=== PATIENT | female | born 1975 | race Caucasian/White ===

== ENCOUNTER 2022-05-09 13:32 | Outpatient (CLI) | payer BC, SELFPAY ==
--- OUTSIDE RECORDS SUMMARY | 2022-05-09 13:36 | XMS_ITS ---
:1975 Author Care Team Providers Name Role Phone ROBER DOYLE MD (VIRTUAL VISITS AVAILABLE) Primary Car e Provider [phone] Allergies Code Code System Name Reaction Severity Status Onset NKDA ? Medications Name Status Start Date Stop Date ? ? albuterol sulfate HFA 90 mcg/actuation aerosol inhaler Active ? Not available Inhale 2 puffs every 4 hours by inhalation route. Bactrim DS 800 mg-160 mg tablet Active ? Not available Take 1 tablet every 12 hours by oral route for 7 days. benzonatate 200 mg capsule Active ? Not a vailable Take 1 capsule 3 times a day by oral route for 5 days. cyclobenzaprine 10 mg tablet Active ? Not available Flucelvax Quad 0983-6945 (PF) 60 mcg (15 mcg x 4)/0.5 mL IM syri nge Active ? Not available TO BE ADMINISTERED BY PHARMACIST FOR IMMUNIZATION Macrobid 100 mg capsule Active ? Not avai lable Take 1 capsule every 12 hours by oral route for 5 days. methylprednisolone 4 mg tablets in a dose pack Active ? Not available Pyridium 200 mg tablet Active ? Not avail able Take 1 tablet 3 times a day by oral route as needed for 2 days. triamcinolone acetonide 0.1 % topical cream Completed ? 10/06/2017 Problems None recorded. Procedures Date Name Performed by ? 09/01/2017 XR, Ankle, 3 or More View Information no t available 09/01/2017 XR, Knee, 3 View Information not avai lable Results Lab Results None recorded. Past Encounters 11/28/2021 Urinary Tract Infectious Disease June Nevarez [facility]: [address] [place] [address], Ph. [phone] 10/11/2021 Covid-19; Acute Urinary Tract Infection June Nevarez [facility]: [address] [place] [address], Ph. [phone] Social History None recorded. Vaccine List Vaccine Type COVID-19, mRNA, LNP-S, PF, 30 mcg/0.3 mL dose (A vida é feita de [place]) 09/28/2020?0.3 mL 10/19/2020?0.3 mL influenza, injectable, quadrivalent 04/09/2017 Tdap 09/01/2017?0.5 mL Plan of Care Patient Instructions Thank you for using [facility]. I am sorry you are not feeling well. Your history and physical exam are consi stent with a urinary tract infection. Studies have indicated that testing for a UTI when symptoms are present is not necessary and the standard of care is to gala t with antibiotics if patients present w ith symptoms such as yours. I have prescribed antibiotics, take as d irected, and complete the entire course. You should notice a rapid improvement in symptoms within 48 hours of starting treatment. I have also prescribed phenazopyridine. Take every six hours to relieve the pain associated with urination. This will turn your urine a bright orange color. Follow up in person with your doctor or at an urgent care if you develop abdominal pain, nausea, fever, or any other symptoms of concern. Thank you for using [facility]. I am sorry you are not feeling well. Your history and exam are consistent wit h a COVID-19 infection. Treatment is focused on controlling the symptoms. Start Amberly-D 24-hour dosing once daniel y for sinus symptom control. This will reduce post nasal drip and improve your sore throat and cough. Start prescription benzonatate 200mg thr ee time daily as needed for additional cough control. Take two extra strength Tylenol every 6- 8 hours for fever and pain control. You can also supplement the Tylenol with ibuprofen 600mg (three over the counter 200mg capsules). These can be alternated in a rotating fashion every 4 hours. This is a safe dosing pattern. Rest, drink plenty of fluids, and treat your symptoms as they arise. You can expect the worse symptoms between days 7-9, with resolution by day 14. Please quarantine yourself from other individuals for 10-14 days from the onset of symptoms. I f, at day 10, you have not had any fever or chills for 24 consecutive hours without having to use Tylenol or Ibuprofen AND your symptoms are mild and improving, y ou may break quarantine and resume socia l distancing. If your fever or symptoms have not improved/resolved, then you should quarantine for the full 14 days. Should symptoms worsen, you develop wors ening shortness of breath or other symptoms of concern, and you are unable to continue to care for yourself, you should present to an urgent care or emergency department for in person evaluation. Reminders Provider Appointments None recorded. ? ? Lab None recorded. ? ? Referral None recorded. ? ? Procedures None recorded. ? ? Surgeries None recorded. ? ? Imaging None recorded. ? ? Vitals 10/06/2017 09:00AM Established Patient Weight 09/01/2017 08:40AM New Patient Weight Blood Pressure 142/88 mm[Hg]
--- OUTSIDE RECORDS SUMMARY | 2022-05-09 13:36 | XMS_ITS | Clinical Summary ---
:1975 Author Organization [facility] [facility] [place] [address] Care Team Providers Name Role Phone Laina Deluca DO Primary Care Provider Allergies No known active allergies Medications Medication Sig Dispensed Refills Start Date End Date Status albuterol HFA every 4 hours. 0 A ctive (PRO-AIR; VENTOLIN; PROVENTIL) 90 mcg/actuation inhaler omeprazole Take 1 Capsule 30 Capsule 0 04/29/2022 Ac tive (PRILOSEC) 40 mg (40 mg) by Delayed-Release mouth once capsuleIndicatio daily before a ns: Epigastric meal. pain nystatin powder Apply 1 Strip 60 g 0 04/29/2022 Active (MYCOSTATIN) topically to powderIndication affected s: Intertrigo area(s) three times daily. omeprazole Take 1 Capsule 30 Capsule 0 04/01/2022 Di scontinued (PRILOSEC) 40 mg (40 mg) by 2 (R eorder Delayed-Release mouth once (E- cancel not capsuleIndicatio daily before a sent)) ns: Epigastric meal. pain fluconazole Take 1 Tablet 1 Tablet 1 05/01/2022 Exp ired (DIFLUCAN) 150 (150 mg) by 2 mg mouth one time tabletIndication for 1 dose. s: Yeast vaginitis Active Problems Problem Noted Date Chronic pain of left knee 04/29/2022 Morbid exogenous obesity 04/29/2022 Encounters Date Type Specialty Care Team Description 05/09/2022 Orders Only Lab, [facility] 05/09/2022 Ancillary Procedure Arrived 05/09/2022 Travel 05/06/2022 Telephone Laina Deluca, Results DO 05/01/2022 Telephone Andrew Pham MD 04/29/2022 Office Visit Laina Deluca, Establish Care; DO Immunization/In jection 04/29/2022 Travel 04/01/2022 Office Visit Laina Deluca, Abdominal Pain (abdominal DO pain for a will h) 04/01/2022 Travel from Last 3 Months Immunizations Name Administration Dates Next Due COVID-19 vaccine (Moderna Booster 50mcg/0.25mL) PF, 01/03/20 22 MDV COVID-19 vaccine (Pfizer-BioNTech 30mcg/0.3mL) 12YO+ 022 BIVALENT BOOSTER PF, MDV COVID-19 vaccine (Pfizer-BioNTech 30mcg/0.3mL) PF, 1, 09/28/2020 MDV Influenza, IIV4 04/29/2022 Tdap 09/01/2017 Family History Medical History Relation Name Comments Anxiety disorder Mother Coronary artery disease Mother Hypertension Mother Scleroderma Mother Relation Name Status Comments Mother Social History Tobacco Use Types Packs/Day Years Used Date Never Smoker Smokeless Tobacco: Never Used Tobacco Cessation: Counseling Given: Yes Alcohol Use Standard Drinks/Week Comments Yes 0 (1 standard drink = 0.6 oz pure alcoho l) 1 x a month Alcohol Habits Answer Date Recorded How often do you have a drink containing alcohol? Not asked How many drinks containing alcohol do you have on a typical Not asked day when you are drinking? How often do you have six or more drinks on one occasion? 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 Obstetrics History Last Filed Vital Signs Vital Sign Reading Time Taken Comments Blood Pressure 158/104 04/29/2022 2:20 PM CDT Pulse 107 04/29/2022 2:20 PM CDT Temperature - - Respiratory Rate - - Oxygen Saturation 97% 04/29/2022 2:20 PM CDT Inhaled Oxygen Concentration - - Weight 166.5 kg (367 lb) 04/29/2022 2:20 PM CDT Height - - Body Mass Index - - Plan of Treatment Upcoming Encounters Date Type Specialty Care Team Description 05/23/2022 Office Visit Laina Deluca , DO [address] [facility] [place] [phone] (Wo rk) Health Maintenance Due Date Last Done Comments Depression screening for age 12+ 1985 BMI (ht and wt on same day) for 1991 age 18+ Hepatitis C screening for age 1105/05/1991 18-79 Colonoscopy through age 75 2018 Lipids for age 45-75 2018 Mammogram for age 45-75 2018 Pap test for age 21-65 04/29/2025 04/29/2022 Tetanus booster 09/02/2027 09/01/2017 Tdap Completed 09/01/2017 COVID-19 vaccine series Completed 04/29/2022, 01/02/2022, 10/19/2020, Additional history exists Influenza for age 9-49 Completed 04/29/2022 Procedures Procedure Name Priority Date/Time Associated Diagnosis Comme nts CT ABDOMEN PELVIS W Routine 05/09/2022 8:19 AM History of pelv ic Results for this [employer]IMAL [employer]Y TE[employer]ER mass procedure are i n the results section. TREPONEMA PALLIDUM Routine 04/29/2022 4:12 PM Screening Res ults for this CDT examination for STD procedur e are in (sexually the results transmitted disease) section . ANTI HIV 1/2 Routine 04/29/2022 4:12 PM Screening Results f or this CDT examination for STD procedur e are in (sexually the results transmitted disease) section . FERRITIN Routine 04/29/2022 4:12 PM Dizziness Results f or this CDT procedure are i n the results section. BASIC METABOLIC Routine 04/29/2022 4:12 PM Dizziness Result s for this PANEL CDT procedure are i n the results section. CBC W PLT NO DIFF Routine 04/29/2022 4:12 PM Dizziness Resu lts for this CDT procedure are i n the results section. HPV THIN PREP Routine 04/29/2022 3:17 PM Pap smear for Results for this CDT cervical cancer procedure ar e in screening the results section. TRICHOMONAS, Routine 04/29/2022 3:17 PM Vaginal discharge Resu lts for this TAVON, AND CDT procedure are i n BACTERIAL VAGINOSIS the resu lts BY KORY section. GC CHLAMYDIA TRACH Routine 04/29/2022 3:17 PM Screening Res ults for this PROBE CDT examination for STD procedur e are in (sexually the results transmitted disease) section . 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 ??You may view this report before your referring provider. ??If you have questions, please contact your health care provider. INDICATION: Reported history of a left trever pelvic t umor diagnosed in 2014 supposedly benign. No follow-up. TECHNIQUE: Contrast-enhanced CT of the abdomen and pelvis. 100 cc nonionic Omnipaque 350 administer ed. COMPARISON: Correlation is made with an outside pelv ic ultrasound report March 27, 2015 from [facility] in [place], [place]. FINDINGS: Multi lobulated enlarged uterus likely d ue to numerous coalescing fibroids or diffuse myomatous change. It is difficult to appreciate any discrete measurable fibroids. The entire uterus appears to be in volved. For measurement purposes, image 153 series 2, the uterus measures approximately 9.4 x 11.9 cm in AP and transverse dimension and extends for a cephalocaudal length of approximately 10.7 cm. Within the right adnexa there is a cysti c lesion likely arising from the right ovary measuring 3.8 x 3.3 cm. There are 2 additional apparently cystic masses potentially arising from the left ovary displaced by the large uterus. These cystic lesions are identified along the anterior and right margin of the uter us, see for example image 149 series 2. If this is the left ovary then it would be in an ectopic location. The larger cystic structure image 151 series 2 measures 4.7 x 6.2 cm. A pelvic MRI is recommended for further characterization. Hepatic fatty infiltration. The liver is otherwise negative. The spleen, accessory splenule, pancreas, gallbladder, adrenal glands, and right kidney are normal. Two cysts arise from the left kidney one anterosuperiorly measuring 6.0 x 6.8 cm and the other inferiorly measuring 3.7 x 4.2 cm. No hydronephrosis. No renal stone. Normal caliber abdominal aorta and iliac arteries. Normal inferior vena cava. No ascites. No abdominopelvic or inguina l lymphadenopathy. Fat containing umbilical hernia with the orifice of the hernia image 149 series 2 measuring 3.7 cm across. Scattered hypertrophic spurring lower th oracic and lumbar spine. Degenerative disc disease of lumbar spine best appreciated at L3 and L4. Clear included lung bases. IMPRESSION : 1. Enlarged indistinct uterus likely rel ated to multiple fibroids or diffuse fibroid involvement. Probable/possible simple cyst right ovary. 2. Two adjacent cystic structures along the anterior right margin of the uterus could reflect an ectopic location of the left ovary given the fact that no left ovary is identified in the left hemipelvis itself. MRI is recommended further eval uation of the uterus and ovaries. 3. Hepatic fatty infiltration. Left jaret l cysts. Fat containing umbilical hernia. Clear lungs. Please note that all CT scans at this [facility] use dose modulation, iterative reconstruction, and/or weight-based dosing when appropriate to reduce radiation dose to as low as reasonably achievable. Dictated by Rodrigue Fajardo MD @ May 09 ??1:26PM (Electronically Signed) ?? Procedure Note Rodrigue Fajardo MD - 05/09/2022Formatti ng of this note might be different from the original. For Patients: As a result of the ntury Cures Act, medical imaging exams and procedure reports are released immediately into your electronic medical record. You may view this report before your referring provider. If you have questions, please contact [facility] care provider. INDICATION: Reported history of a left trever pelvic t umor diagnosed in 2014 supposedly benign. No follow-up. TECHNIQUE: Contrast-enhanced CT of the abdomen and pelvis. 100 cc nonionic Omnipaque 350 administer ed. COMPARISON: Correlation is made with an outside pelv ic ultrasound report March 27, 2015 from [facility] in [place], [place]. FINDINGS: Multi lobulated enlarged uterus likely d ue to numerous coalescing fibroids or diffuse myomatous change. It is difficult to appreciate any discrete measurable fibroids. The entire uterus appears to be involved. For measurement purposes, image 153 series 2 , the uterus measures approximately 9.4 x 11.9 cm in AP and transverse dimension and extends for a cephalocaudal length of approximately 10.7 cm. Within the right adnexa there is a cysti c lesion likely arising from the right ovary measuring 3.8 x 3.3 cm. There are 2 additional apparently cystic masses potentially arising from the left ovary displaced by the large uterus. These cystic lesions are identified along the anterior and right margin of the uterus, see for example image 149 series 2. If this is t he left ovary then it would be in an ectopic location. The larger cystic structure image 151 series 2 measures 4.7 x 6.2 cm. A pelvic MRI is recommended for further characterization. Hepatic fatty infiltration. The liver is otherwise negative. The spleen, accessory splenule, pancreas, gallbladder, adrenal glands, and right kidney are normal. Two cysts arise from the left kidney one anterosuperiorly measuring 6.0 x 6.8 cm and the other inferiorly measuring 3.7 x 4.2 cm. No hydronephrosis. No renal stone. Normal caliber abdominal aorta and iliac arteries. Normal inferior vena cava. No ascites. No abdominopelvic or inguinal lymphadenopat hy. Fat containing umbilical hernia with the orifice of the hernia image 149 series 2 measuring 3.7 cm across. Scattered hypertrophic spurring lower th oracic and lumbar spine. Degenerative disc disease of lumbar spine best appreciated at L3 and L4. Clear included lung bases. IMPRESSION : 1. Enlarged indistinct uterus likely rel ated to multiple fibroids or diffuse fibroid involvement. Probable/possible simple cyst right ovary. 2. Two adjacent cystic structures along the anterior right margin of the uterus could reflect an ectopic location of the left ovary given the fact that no left ovary is identified in the left hemipelvis itself. MRI is recommended further evaluation of the ut erus and ovaries. 3. Hepatic fatty infiltration. Left jaret l cysts. Fat containing umbilical hernia. Clear lungs. Please note that all CT scans at this [facility] use dose modulation, iterative reconstruction, and/or weight-based dosing when appropriate to reduce radiation dose to as low as reasonably achievable. Dictated by Rodrigue Fajardo MD @ May 09 1:26PM (Electronically Signed) Laina Marte Yosi S[facility] CT TREPONEMA PALLIDUM (04/29/2022 4:12 PM CDT) Analysis Performed At [facility] logist Time Signature TREPONEMA Negative Negative 05/01/2022 [facility] PALLIDUM 9:17 AM CDT LABORATORY-[facility] TRAL LABORATORY Specimen Anatomical Collection Method / Collection Time Recei nisreen Time (Source) Location / Volume Laterality Blood BLOOD SPECIMEN / Venipuncture / 04/29/2022 4:12 2021 4:13 Unknown Unknown PM CDT PM CDT Laina Troyalon DO SEND OUTS Performing Organization Address City/State/ZIP Code Phon e Number [email or web address] [address] [place] [address] LABORATORY-CENTRAL 2000 LABORATORY (ABNORMAL) CBC W PLT NO DIFF (04/29/2022 4:12 PM CDT) [facility] gist Method Time Signature WHITE BLOOD 11.9 (H) 4.5 - 11.0 04/29/2022 [facility] [employer] [facility] COUNT thou/cu mm 4:20 PM CDT [facility] RED BLOOD COUNT 4.74 4.00 - 04/29/2022 [place] [facility] 5.20 4:20 PM CDT PAW PAW mil/cu mm CLINIC HEMOGLOBIN 13.6 12.0 - 04/29/2022 [place] [facility] 16.0 g/dL 4:20 PM CDT [facility] HEMATOCRIT 40.6 33.0 - 04/29/2022 [place] [facility] 51.0 % 4:20 PM CDT [facility] MCV 86 80 - 100 04/29/2022 [facility] [employer] [facility] fL 4:20 PM CDT [facility] MCH 28.7 26.0 - 04/29/2022 [place] [facility] [employer] [facility] 34.0 pg 4:20 PM CDT [facility] MCHC 33.5 32.0 - 04/29/2022 [place] [facility] [employer] [facility] 36.0 g/dL 4:20 PM CDT [facility] RDW 13.1 11.5 - 04/29/2022 [email or web address] 15.5 % 4:20 PM CDT [facility] PLATELET COUNT 385 140 - 440 04/29/2022 [facility] thou/cu mm 4:20 PM CDT [facility] MPV 9.7 6.5 - 11.0 04/29/2022 [facility] [employer] [facility] [employer] [facility] fL 4:20 PM CDT [facility] Specimen Anatomical Collection Method / Collection Time Recei nisreen Time (Source) Location / Volume Laterality Blood BLOOD SPECIMEN / Venipuncture / 04/29/2022 4:12 2021 4:13 Unknown Unknown PM CDT PM CDT Laina Deluca DO HEMATOLOGY Performing Organization Address City/[facility]/ZIP Code Phon e Number [facility] [address] [place] [address] ANTI HIV 1/2 (04/29/2022 4:12 PM CDT) Patholo gist Method Time Signature HIV-1/HIV-2 Non-Reacti Non-Reacti 04/30/2022 [facility] [employer] [facility] ANTIBODY ve ve 6:25 PM CDT LABORATORY[facility] TRAL LABORATORY Comment: HIV-1 p24 and HIV-1/HIV-2 Ab no t detected. Specimen Anatomical Collection Method / Collection Time Recei nisreen Time (Source) Location / Volume Laterality Blood BLOOD SPECIMEN / Venipuncture / 04/29/2022 4:12 2021 4:13 Unknown Unknown PM CDT PM CDT Laina Deluca DO SEND OUTS Performing Organization Address [facility] Phon e Number [facility] [address] [place] [address] LABORATORY-CENTRAL 2000 LABORATORY FERRITIN (04/29/2022 4:12 PM CDT) P athologist Signature FERRITIN 65.3 15.0 - 04/30/2022 [email or web address] 205.0 ng/mL 6:25 PM CDT LABORATORY-CENTR AL LABORATORY Specimen Anatomical Collection Method / Collection Time Recei nisreen Time (Source) Location / Volume Laterality Blood BLOOD SPECIMEN / Venipuncture / 04/29/2022 4:12 2021 4:13 Unknown Unknown PM CDT PM CDT Laina Deluca DO CHEMISTRY Performing Organization Address City/[facility]/ZIP Code Phon e Number [facility] [address] [place] [address] LABORATORY-CENTRAL 2000 LABORATORY (ABNORMAL) BASIC METABOLIC PANEL (04/29/2022 4:12 PM CDT) [facility] Time Signature SODIUM 136 135 - 145 04/30/2022 [facility] mmol/L 6:01 PM CDT LABORATORY-[facility] TRAL LABORATORY POTASSIUM 4.4 3.5 - 5.0 04/30/2022 [facility] mmol/L 6:01 PM CDT [facility]AT[facility] TRAL LABORATORY CHLORIDE 100 98 - 110 04/30/2022 [facility] mmol/L 6:01 PM CDT LAB[facility]AT[facility] TRAL LABORAT[facility] CO2,TOTAL 25 21 - 31 04/30/2022 [facility] mmol/L 6:01 PM CDT [facility]AT[facility] TRAL LABORATORY ANION GAP 11 5 - 18 04/30/2022 [facility] 6:01 PM CDT [facility]AT[facility] TRAL LABORATORY GLUCOSE 322 (H) 65 - 100 04/30/2022 [facility] mg/dL 6:01 PM CDT [facility] TRAL LABORATORY CALCIUM 9.1 8.5 - 10.5 04/30/2022 [facility] mg/dL 6:01 PM CDT [facility] BUN 14 8 - 25 04/30/2022 [facility] mg/dL 6:01 PM CDT [facility] LAB[facility] CREATININE 0.81 0.57 - 04/30/2022 [facility] [employer] [facility] 1.11 mg/dL 6:01 PM CDT [facility]AT[facility] TRAL LABORATORY BUN/CREAT RATIO 17 10 - 20 04/30/2022 [facility] 6:01 PM CDT [facility] LABORATORY eGFR 90 (L) >90 04/30/2022 [facility] mL/min/1.7 6:01 PM CDT LABORATORY-[facility] 3m2 TRAL LABORATORY Comment: As of 2021, eGFR is calcu lated by the CKD-EPI creatinine equation without race adjustment. eGFR can be inf luenced by muscle mass, exercise, and diet. The reported eGFR is an estimation only and is only applicable if the renal function is stable. Specimen Anatomical Collection Method / Collection Time Recei nisreen Time (Source) Location / Volume Laterality Blood BLOOD SPECIMEN / Venipuncture / 04/29/2022 4:12 2021 4:13 Unknown Unknown PM CDT PM CDT [employer]aina[employer] DO CHEMISTRY Performing Organization Address City/State/ZIP Code Phon e Number [facility] [address] [place] [address] LABORATORY-CENTRAL 1999 LABORATORY (ABNORMAL) TRICHOMONAS, TAVON, AND BACTERIAL VAGINOSIS BY [facility] (04/29/2022 3:17 PM CDT) [facility] Method Time Signature TAVON SPECIES Positive (A) Negative 04/30/2022 [facility] 4[facility] PM CDT LAB[facility]-CE NTRAL LABORATORY TAVON Positive (A) Negative 04/30/2022 [facility] 4:39 PM CDT LABORATORY-CE NTRAL LABORATORY TRICHOMONAS VVA Negative Negative 04/30/2022 [facility] 4:39 PM CDT LABORATORY-CE NTRNJ LABORATORY BACTERIAL Negative Negative 04/30/2022 [facility] VAGINOSIS 4:39 PM CDT LABORATORY-CE NTRAL LABORATORY Specimen Anatomical Collection Method Collection Time Receive d Time (Source) Location / / Volume Laterality Other VAGINAL SWAB / Non-Blood / 04/29/2022 3:17 PM 022 3:41 Unknown Unknown CDT PM CDT [employer] DO MICROBIOLOGY Performing Organization Address City/[facility]/ZIP Code Phon e Number [email or web address] [address] [place] [address] LABORATORY-CENTRAL 2000 LABORATORY GC CHLAMYDIA TRACH PROBE (04/29/2022 3:17 PM CDT) [facility] Method Time Signature CHLAMYDIA PROBE Negative 04/30/2022 [facility] 5:40 PM CDT LABORATORY-[facility] TRAL LABORATORY N GONORRHOEAE Negative 04/30/2022 [facility] PROBE 5:40 PM CDT LABORATORY-[facility] TRAL LABORATORY Specimen Anatomical Collection Method Collection Time Receive d Time (Source) Location / / Volume Laterality Other VAGINAL SWAB / Non-Blood / 04/29/2022 3:17 PM 022 3:41 Unknown Unknown CDT PM CDT [employer] DO MICROBIOLOGY Performing Organization Address City/State/ZIP Code Phon e Number [facility] [address] [place] [address] LABORATORY-CENTRAL 2000 LABORATORY HPV HIGH RISK (04/29/2022 3:17 PM CDT) Analysis Performed At Patho logist Time Signature TYPE 16 Negative Negative 05/01/2022 [facility] 5:11 PM CDT LABORATORY-[facility] TRAL LABORATORY TYPE 18 Negative Negative 05/01/2022 [facility] 5:11 PM CDT LABORATORY-[facility] TRAL LABORATORY OTHER HIGH Negative Negative 05/01/2022 [facility] RISK TYPES 5:11 PM CDT LABORATORY-[facility] TRAL LABORATORY Specimen Anatomical Collection Method Collection Time Receive d Time (Source) Location / / Volume Laterality Other (Cervical) Non-Blood / 04/29/2022 3:17 PM 04/30 9:50 Unknown CDT AM CDT Narrative [facility] LABORATORY-CENTRAL LABORAT ORY - 05/01/2022 5:11 PM CDT HPV types 16, 18, 31, 33, 35, 39, 45, 51, 52, 56, 58, 59, 66 and 68 DNA were undetectable or below the pre-set threshold. Methodology: Julian Polly 4800 HPV Test Laina Deluca DO MICROBIOLOGY Performing Organization Address City/State/ZIP Code Phon e Number [facility] [address] [place] [address] LABORATORY-CENTRAL 2000 LABORATORY from Last 3 Months Insurance Payer Benefit Plan / Subscriber ID Effective Dates Phone Addre ss Type Group [employer] [place] [place] [id number] 2015-Present [address] [address] [place] [address] [phone] (Home) [place] [id number] Care Teams [employer] Counter Person Relationship Specialty Start Date End Date Laina Deluca DO PCP - General Family Practice 04/29/[address] [place] [address] [address]
--- NOTE | 2022-05-09 13:45 | MR_ITS ---
[address] [address] Phone:?[phone] Fax:?[phone] Referring Physician Information: Laina Deluca D.O. [address] [facility] [address] Phone:?[phone] Fax:?[phone] Patient:Annabella Morrison Ricardo.O.B:?1975 Sex:?Male Phone:?[phone] [facility] MRN:?[id number] Exam Date:?05/09/2022 ? EXAM: MRI EXAMINATION OF THE LEFT KNEE CLINICAL INFORMATION: Left knee pain. History of multiple injuries. No history of surgery to this area. TECHNICAL INFORMATION: Coronal PD, T2 and STIR. Axial PD and T2 fat saturation. Sagittal PD and T2 fat saturation images acquired. INTERPRETATION: Bones: Localized mild subchondral edema signal and cystic change involves the weightbearing surface of the medial femoral condyle. Moderate to marked osteophytic spurring involves the medial joint compartment. No occult fracture or AVN. No other abnormal bone marrow edema pattern is identified. Ligaments and tendons: The medial collateral ligament is intact, without acute sprain or tear. The iliotibial band, fibular collateral ligament, biceps femoris tendon and popliteus tendon all are intact. The anterior cruciate ligament is intact without acute sprain or tear. The posterior cruciate ligament is intact. Extensor Mechanism: The patellar and quadriceps tendons are intact. The medial and lateral retinacula are intact. Knee Joint: There is a small to moderate knee joint effusion. No discrete popliteal cyst. There is no discrete loose body seen within the joint. Medial Compartment: There is a grade 4 appearance of chondromalacia through the central weightbearing surface of the medial femoral condyle. Grade II and III chondromalacia through the central surface of the tibial plateau. No evidence for discrete medial meniscal tear. Lateral Compartment: There is no evidence for discrete lateral meniscal tear. No displaced flap fragment or parameniscal cyst. Series 9 images 24 and 25 demonstrate a 9 mm segment of grade II and III chondromalacia with chondral fissuring involving the weightbearing surface of the lateral femoral condyle. No other significant changes of chondromalacia. Patellofemoral articulation: Series 7 image 15 and series 5 image 14 demonstrate a 4 mm segment of grade 3 to IV chondromalacia inferior to the mid patella, just medial to the midline. Partial thickness chondromalacia involves the central midline and medial trochlear groove. CONCLUSION:?The image quality is somewhat degraded by the patient's body habitus. 1. Medial compartment correlation includes grade IV involvement through the central weightbearing surface of the femoral condyle. Localized adjacent subchondral edema signal and cystic change. 2. No evidence for a meniscal tear. The cruciate ligaments are intact. 3. There is a small segment of grade III to IV chondromalacia inferior to the mid patella. Partial-thickness chondromalacia involves the central trochlear groove. 4. There is a small segment of grade II and III chondromalacia with chondral fissuring involving the weightbearing surface of the lateral femoral condyle. 5. There is a small to moderate knee joint effusion. No discrete loose body identified. KES Electronically signed on 05/09/2022 4:23:00 PM by Michael Dickson M.D.
== END 2022-05-09 13:33 | disposition home or self-care (01) ==
LOC: MRI 13:34
PROVIDERS: PCP Family Medicine; Visit Provider Family Medicine
DX: M25.562 Pain in left knee (principal); M94.262 Chondromalacia, left knee; M25.462 Effusion, left knee
CPT/HCPCS: 73721

== ENCOUNTER 2022-10-13 22:55 | Outpatient (CLI) | payer BC, SELFPAY | END 2022-10-13 22:56 | disposition home or self-care (01) | LOC: AMB 10-17 10:15 | PROVIDERS: PCP Family Medicine; Visit Provider Family Medicine | DX: R10.9 Unspecified abdominal pain (principal) | CPT/HCPCS: A0425; A0427 ==

== ENCOUNTER 2022-10-13 23:15 | Day surgery (SDC) | payer BC, SELFPAY ==
[2022-10-13 23:22] VITALS: PULSE 109; RESP 18; TEMP 36.5; O2SAT 97; BMI 59.9
[2022-10-13 23:42] LABS: Appearance Urine Slightly Cloudy (Clear); Bilirubin Urine Negative (Negative); Blood Urine 3+ (Negative); Color Urine Yellow (Yellow); Glucose Urine 3+ (Negative); Ketones Urine Negative (Negative); Leukocyte Esterase Urine Negative (Negative); Nitrite Urine Negative (Negative); Protein Urine 3+ (Negative); Urobilinogen Urine 0.2 (0.2-1.0)
[2022-10-13 23:50] LABS: Bacteria Urine Few; RBC Urine 25-50 (0-2); Squamous Epithelial Cell Urine Few (None-Few)
--- NOTE | 2022-10-13 23:58 | CRLHL7_ITS ---
For Patients: As a result of the 21st Century Cures Act, medical imaging exams and procedure reports are released immediately into your electronic medical record. You may view this report before your referring provider. If you have questions, please contact your health care provider. INDICATION: Periumbilical pain. Possible hernia. COMPARISON: None available. TECHNIQUE: CT examination of the abdomen and pelvis was performed with the uneventful intravenous administration of 150 cc of Isovue 370 while 3 mm thick axial sections were obtained from the lung bases through the pubic symphysis. Oral contrast was not administered. Please note that all CT scans at this facility use dose modulation, iterative reconstruction, and/or weight-based dosing when appropriate to reduce radiation dose to as low as reasonably achievable. FINDINGS: In the abdomen, the liver, spleen, pancreas, and adrenals are normal in appearance. There is a 7.4 x 5.9 centimeter simple appearing cyst arising from the upper pole of the left kidney. A 4.3 centimeters cyst arises from the lower pole of left kidney. The kidneys are otherwise normal in appearance. The gallbladder is normal in appearance. The abdominal aorta is normal in caliber with no sign of dilatation. There is no sign of retroperitoneal mass or adenopathy. The stomach, loops of proximal and mid small bowel, and colon in the abdomen are normal in appearance. There is a moderate-sized periumbilical hernia, containing a short-segment of mildly distended small bowel. The ileum to the hernia in the right lower quadrant and right upper pelvis is also mildly dilated, indicating mild obstruction related to the hernia. The ileum distal to the hernia is not nondistended. In the pelvis, the appendix is normal in appearance with no sign of inflammatory process. The colon and rectum in the pelvis are largely collapsed and are otherwise normal in appearance. The uterus is prominently enlarged by what appears to be a dominant left fundal fibroid measuring 10.8 x 10.4 centimeters. Several cystic structures are seen along the right side of the uterine fundus which may be areas of cystic degeneration of exophytic fibroids. There is a cystic region to the right of the uterine fundus measuring 4.7 x 3.0 centimeters which may be an ovarian cyst. The left adnexal region is normal in appearance. The urinary bladder is normal in appearance. There is no sign of pelvic or inguinal mass or adenopathy. There is no sign of free air or free fluid in the abdomen or pelvis. The lung bases are clear. There is minimal anterior subluxation of L4 on L5. There is mild disc degenerative disease throughout the lumbar spine, sparing L5-S1. IMPRESSION: Moderate-sized periumbilical hernia containing a short, mildly distended segment of small bowel. There hernia produces partial small-bowel obstruction with mild dilatation of the proximal ileum in the right lower abdomen and upper pelvis. CT of the abdomen shows a moderate sized cyst in the upper pole of the left kidney, of no clinical concern. CT of the pelvis shows prominent enlargement of the uterus by what appears to be a dominant left fundal fibroid measuring up to 10.8 centimeters in diameter. Several other cystic structures located anterior and to the right of the uterine fundus, a cystic fibroid degeneration with possible right ovarian cyst. Please note that all CT scans at this facility use dose modulation, iterative reconstruction, and/or weight-based dosing when appropriate to reduce radiation dose to as low as reasonably achievable. Dictated by Mihai Deleon MD @ 10/14/2022 1:08:26 AM (Electronically Signed)
[2022-10-14] VITALS (21 sets, daily range): BP systolic 110–208; BP diastolic 65–118; PULSE 94–106; RESP 14–22; TEMP 35.9–38.8; O2SAT 91–99
--- NOTE | 2022-10-14 | ED_ITS ---
HPI - Abdominal Pain General Chief Complaint: Abdominal Pain Stated Complaint: abdominal pain Time Seen by Provider: 10/13/22 23:48 History of Present Illness HPI narrative: 47-year-old woman presenting to the emergency department complaint of severe periumbilical area pain. She thinks it might be a flare of her GERD which apparently was diagnosed around March of last year. She has been taking omeprazole since that time but more regularly since July and then recently augmenting with Pepcid. Maybe this helps. Does not endorse a real history of heartburn prior to that diagnosis though. For some time though she has had flares of where she is demonstrating this periumbilical pain that come and go. Feels like a vice at this time severe pain. She walked to a little improved to the bathroom to leave a urine sample earlier and admits that straightening up really is the only thing that maybe allows it to release a little bit. This current episode began ran around 8:00 p.m. so she is about 3-1/2 hours with this prior to arrival in the ED via EMS. These episodes have been occurring to 3 times a week more recently with pain maybe lasting between 4-6 hours even. She reports this periumbilical area getting hard during these times. She is demonstrating rather significant pain and says she does not want any opiates as both her parents were addicts. Has a doctorate of chemistry/biochemistry. Related Data Home Medications Medication Instructions Recorded Confirmed omeprazole 40 mg capsule,delayed 40 mg PO DAILY 10/13/22 10/13/22 release Previous Rx's Medication Instructions Recorded oxycodone 5 mg tablet 5 mg PO Q6H PRN pain #5 tabs 10/14/22 sennosides 8.6 mg capsule (senna) 8.6 mg PO DAILY PRN constipation 10/14/22 #90 caps Allergies Allergy/AdvReac Type Severity Reaction Status Date / Time No Known Drug Allergies Allergy Verified 10/13/22 23:25 Review of Systems Status of ROS Reports: 6 or more systems reviewed and unremarkable except as noted in History and below FORMERLY [facility], [facility] PFS Social History Smoking Status: Never smoker Do you use any of these nicotine containing products: None How often do you have a drink containing alcohol: never AUDIT-C Alcohol total score: 0 Non-prescribed substance use: denies use Exam Narrative: Exam Narrative: Clearly uncomfortable. Breathing rapidly in distress. Hand generally resting at her low-mid abdomen. Nearly crying at times. Skin is warm and dry. There are not inflammatory changes. Lungs are clear. Pain is exacerbated a little bit with deep breath. Heart in an elevated rate but regular rhythm. She is a little reticent to lay flat on the bed for exam. She does allow for se mi recline. Abdomen is obese. Soft. Though there is a softball plus sized firm swelling centered under the umbilicus which looks to also have central pressure/tension and dilated maybe an inch and a half. Very tender to palpation in these areas. This appears to be a hernia. I attempt some pressure for reduction but she is having too much discomfort to relax. Const: Vital Signs, click to edit/add: Vital Signs - 24 hr 10/13/22 23:22 10/14/22 02:52 Temperature 97.7 F Pulse Rate [Left P ulse Oximeter] 109 H 106 H Respiratory Rate 18 18 Blood Pressure [Le ft Upper Arm] 208/118 H Pulse Oximetry 97 97 Oxygen Delivery Me thod Room Air Room Air Documenting provider has reviewed patient's vital signs: yes Course Vital Signs Vital signs: Initial Vital Signs Temperature 97.7 F 10/13/22 23:22 Temperature Source Temporal Artery Scan 10/13/22 23:22 Pulse Rate 109 H 10/13/22 23:22 Respiratory Rate 18 10/13/22 23:22 Pulse Oximetry 97 10/13/22 23:22 Oxygen Delivery Method Room Air 10/13/22 23:22 Vital Signs Temperature 97.7 F 10/13/22 23:22 Pulse Rate 109 H 10/13/22 23:22 Respiratory Rate 18 10/13/22 23:22 Pulse Oximetry 97 10/13/22 23:22 Oxygen Delivery Method Room Air 10/13/22 23:22 Temperature 98.6 F 10/14/22 20:44 Pulse Rate 94 10/14/22 20:44 Respiratory Rate 18 10/14/22 20:44 Blood Pressure 110/65 10/14/22 20:44 Pulse Oximetry 97 10/14/22 18:00 Oxygen Delivery Method Room Air 10/14/22 18:00 Oxygen Flow Rate 3.5 10/14/22 12:30 MDM - Abdominal Pain MDM Narrative Medical decision making narrative: Concern certainly for strangulated/incarcerated abdominal wall/umbilical hernia. This would explain the symptoms I think clinically. I think GERD is an unlikely diagnosis of these for what I am seeing here in the emergency department. There is a question also of a pelvic mass requiring MRI follow-up according to my conversation with Radiology. Did not make MRI follow-up Urinalysis with hematuria unclear etiology at this point --confirmed later that menstruating Did place IV for contrasted CT of abdomen and pelvis. Given ketorolac. Normal saline. Is beginning to feel some nausea and so under for Zofran and pain dosing of ketamine which I am hoping will help for relaxation allow me to attempt some reduction. Pending though CT at this time. CT IV contrast abdomen pelvis by my read does show an abdominal wall/periumbilical hernia moderate containing some dilated loops of small bowel. Notable masses around the uterus Radiology over-read as below IMPRESSION: Moderate-sized periumbilical hernia containing a short, mildly distended segment of small bowel. There hernia produces partial small-bowel obstruction with mild dilatation of the proximal ileum in the right lower abdomen and upper pelvis. CT of the abdomen shows a moderate sized cyst in the upper pole of the left kidney, of no clinical concern. CT of the pelvis shows prominent enlargement of the uterus by what appears to be a dominant left fundal fibroid measuring up to 10.8 centimeters in diameter. Several other cystic structures located anterior and to the right of the uterine fundus, a cystic fibroid degeneration with possible right ovarian cyst. Continues to be quite uncomfortable moaning in pain. Still abdomen does not want opiate pain medication. Did give some Ativan. This does seem to allowed to rest. Had contacted Anesthesia anticipating propofol sedation to allow for reduction though I am skeptical that this will be effective. Woke and was vomiting. And anesthesia consult felt that would need to better protect airway given evolving bowel obstruction and vomiting, with intubation. Obesity is a further challenge. I did make another attempt at reduction but was unsuccessful. Contacted our general surgeon who will be arranging for surgical intervention Lab Data Attestation: I reviewed the patient's lab results. Labs: Lab Results 10/13/22 10/14/22 10/14/22 Range/Units 23:40 00:24 03:40 WBC 9.96 (4.50-11.00) K/uL RBC 5.25 H (4.00-5.20) m/uL Hgb 14.6 (12.0-16.0) gm/dL Hct 43.7 (33.0-51.0) % MCV 83 (80-100) fL MCH 28 (26-34) pg MCHC 33 (32-36) gm/dL RDW Coeff of [place] 12.7 (11.5-15.5) % Plt Count 123 L (140-440) K/uL Neut % (Auto) 69.4 (42.0-72.0) % Lymph % (Auto) 22.5 (20-44) % [place] % (Auto) 5.5 (0.0-11.0) % Eos % (Auto) 1.9 (0.0-7.0) % Baso % (Auto) 0.2 (0.0-3.0) % Neut # (Auto) 6.91 (1.7-7.0) K/uL Lymph # (Auto) 2.24 (0.90-2.90) K/uL [place] # (Auto) 0.50 (0.00-0.90) K/UL Eos # (Auto) 0.19 (0.00-0.50) K/uL Baso # (Auto) 0.02 (0.00-0.30) K/uL Sodium 134 L (135-149) mmol/L Potassium 4.1 (3.6-5.1) mmol/L Chloride 100 (96-114) mmol/L Carbon Dioxide 25 (20-32) mmol/L BUN 14 (5-24) mg/dL Creatinine 0.4 L (0.5-1.5) mg/dL Estimated Creat Clear 153.09 Estimated GFR 121 ml/min Glucose 317 H (60-115) mg/dL Lactate 2.1 H (0.5-1.9) mmol/L Calcium 9.2 (8.4-10.6) mg/dL Urine Color Yellow (Yellow) Urine Appearance Slightly Cloudy A (Clear) Urine pH 7.0 (5.0-8.5) Ur Specific [place] 1.020 (1.000-1.030) Urine Protein 3+ A (Negative) Urine Glucose (UA) 3+ A (Negative) Urine Ketones Negative (Negative) Urine Blood 3+ A (Negative) Urine Nitrite Negative (Negative) Urine Bilirubin Negative (Negative) Urine Urobilinogen 0.2 (0.2-1.0) Ur Leukocyte Esterase Negative (Negative) Urine RBC 25-50 A (0-2) Urine WBC 2-5 (0-5) Ur Squamous Epith Cells Few (None-Few) Urine Bacteria Few A (None) SARS-CoV-2 (PCR) Negative SARS-CoV-2 (Negative) Discharge Plan Discharge Clinical Impression: Uterine fibroid, Ovarian cyst, Periumbilical hernia, Abdominal pain, Partial small bowel obstruction Patient Disposition: XFER to OR Condition: Stable
[2022-10-14] MEDS: KETOROLAC 30 MG/ML inj IVP (00:29)
[2022-10-14] MEDS: ONDANSETRON 2 MG/ML inj 4 MG IVP (00:29)
[2022-10-14 00:31] LABS: Lactate* 2.1 mmol/L (0.5-1.9)
[2022-10-14] MEDS: 0.9 % SODIUM CHLORIDE 1000 ml 1,000 ML IV (00:31)
[2022-10-14 00:33] LABS: Basophils Absolute Auto 0.02 K/uL (0.00-0.30); Basophils Percent Auto 0.2 % (0.0-3.0); Eosinophils Absolute Auto 0.19 K/uL (0.00-0.50); Eosinophils Percent Auto 1.9 % (0.0-7.0); Hematocrit 43.7 % (33.0-51.0); Hemoglobin* 14.6 gm/dL (12.0-16.0); Immature Granulocytes Abs Auto 0.05 K/uL (0.00-0.30); Immature Granulocytes Pct Auto 0.5 %; Lymphocytes Absolute Auto 2.24 K/uL (0.90-2.90); Lymphocytes Percent Auto 22.5 % (20-44); Mean Corpuscular HGB Conc 33 gm/dL (32-36); Mean Corpuscular Hemoglobin 28 pg (26-34); Mean Corpuscular Volume 83 fL (80-100); Monocytes Percent Auto 5.5 % (0.0-11.0); Neutrophils Absolute Auto 6.91 K/uL (1.7-7.0); Neutrophils Percent Auto 69.4 % (42.0-72.0); Platelet Count* 123 K/uL (140-440); RDW Coefficient of Variation % 12.7 % (11.5-15.5); Red Blood Count 5.25 m/uL (4.00-5.20); White Blood Count* 9.96 K/uL (4.50-11.00)
[2022-10-14 00:35] LABS: Slide Review Reflex No
[2022-10-14 00:55] LABS: Chloride* 100 mmol/L (96-114); Potassium* 4.1 mmol/L (3.6-5.1); Sodium* 134 mmol/L (135-149)
[2022-10-14 00:58] LABS: Blood Urea Nitrogen* 14 mg/dL (5-24); Carbon Dioxide* 25 mmol/L (20-32); Creatinine* 0.4 mg/dL (0.5-1.5); Est. Creatinine Clearance* 153.09; Estimated Glomerular Filt Rate 121 ml/min
[2022-10-14 00:59] LABS: Calcium* 9.2 mg/dL (8.4-10.6); Glucose* 317 mg/dL (60-115)
[2022-10-14] MEDS: KETAMINE HCL 20 MG in 0.9 % SODIUM CHLORIDE 100 ml 100 ML 300.6 MG IVPB (01:00)
[2022-10-14] MEDS: LORazepam 2 MG/ML inj 1 MG IVP (02:00)
[2022-10-14 04:20] LABS: SARS PCR* Negative SARS-CoV-2 (Negative)
--- NOTE | 2022-10-14 04:48 | PM.GSHP ---
History of Present Illness History of Present Illness Date Seen: 10/14/22 Chief complaint: abdominal pain Narrative: Anegl Morrison is a 47 year old female with worsening periumbilical abdominal pain, nausea and vomiting. She states that she has had pain in the area on and off for the last 6 months. Over the last 2 weeks she has been having more severe bouts of abdominal pain. Earlier today the pain became very intense and did not get better. She also is reporting a decrease in appetite, nausea and vomiting. She has never had abdominal surgery before. Past medical history is significant for morbid obesity, although she does report a 60 lb weight loss over the last year. Workup in the emergency department did show an elevated lactate (2.1). CT scan demonstrated an incarcerated periumbilical hernia with partial small-bowel obstruction. Previous attempts in the emergency department to reduce have been unsuccessful. Review of Systems Status of ROS: Reports: 10 or more systems reviewed and unremarkable except as noted in History and below PFSH [facility] Social History Smoking Status: Never smoker Do you use any of these nicotine containing products: None How often do you have a drink containing alcohol: never AUDIT-C Alcohol total score: 0 Non-prescribed substance use: denies use Meds Home Medications and Allergies Home Medications Medication Instructions Recorded Confirmed Type omeprazole 40 mg capsule,delayed 40 mg PO DAILY 10/13/22 10/13/22 History release Allergies Allergy/AdvReac Type Severity Reaction Status Date / Time No Known Drug Allergies Allergy Verified 10/13/22 23:25 Exam Narrative: Exam Narrative: General: Alert and oriented, no acute distress. Nontoxic in appearance CV: Tachycardia, regular rhythm and well perfused Respiratory: Equal breath rise bilaterally, maintained on room air Abdomen: Obese abdomen. Grapefruit sized periumbilical hernia that is tender to palpation, I was able to partially reduce her hernia during my exam, but not fully. Hernia is very firm and tense. No overlying skin changes. No other areas of tenderness and no concern for peritonitis. Const: Vital Signs, click to edit/add: Vital Signs - 24 hr 10/13/22 23:22 10/14/22 02:52 Temperature 97.7 F Pulse Rate [Left P ulse Oximeter] 109 H 106 H Respiratory Rate 18 18 Blood Pressure [Le ft Upper Arm] 208/118 H Pulse Oximetry 97 97 Oxygen Delivery Me thod Room Air Room Air Results Results Labs: Lactate elevated at 2.1. Abdomen CT scan report/results: report reviewed and image reviewed Assessment and Plan Assessment and plan (1) Incarcerated hernia of abdominal cavity: Status: Acute Plan Patient is a 47-year-old female who presented to the emergency department with worsening abdominal pain and obstructive symptoms. CT scan did demonstrate incarcerated periumbilical hernia with partial small-bowel obstruction. This was not able to be reduced in the emergency department. Risks and benefits of operative intervention were discussed at length the patient. Risks and benefits of operative intervention were discussed at length with the patient. Risks included but was not limited to: Bleeding, infection, risk of damage to surrounding structures, possible need for additional procedures, possible need to convert to an open operation and postoperative complications such as pneumonia, pulmonary emboli or [place]. All questions and concerns were addressed with the patient agreeing to proceed. Given the patient's morbid obesity would plan to start laparoscopic to evaluate the incarcerated contents of the hernia sac and possibly repair with mesh. If there is evidence of necrotic bowel or concern for translocation would not place mesh in that setting and may convert to an open procedure. -OR for lap ventral hernia repair, possible conversion to open, possible small-bowel resection
[2022-10-14] MEDS: LACTATED RINGERS 1000 ML 1,000 ML 125 ML IV ×4 (05:05→12:54)
[2022-10-14] MEDS: CEFAZOLIN 1 GM inj 3 GM IVP (05:15)
[2022-10-14] MEDS: BUPIVACAINE 0.25% 30 ML INJECTION (07:04)
--- NOTE | 2022-10-14 07:13 | PM.GSPRC ---
Operative Note Date of procedure: 10/14/22 Pre-op diagnosis: Incarcerated ventral hernia Post-op diagnosis: Same Type of Procedure: Laparoscopic ventral hernia repair with placement of mesh Indications: Patient is a 47-year-old female who presented to the emergency department with workup consistent with incarcerated small bowel and associated small-bowel obstruction. Risks and benefits of operative intervention were discussed at length with the patient. Risks included but was not limited to: Bleeding, infection, risk of damage to surrounding structures, possible need for additional procedures, possible need to convert to an open operation and postoperative complications such as pneumonia, pulmonary emboli or [place]. All questions and concerns were addressed with the patient agreeing to proceed. Procedure Description: After discussing the risks and benefits of the procedure, the patient signed informed consent.? The operative site was marked and the patient was brought to the operating room and placed on the operating table in supine position.? Care was taken to pad the patient's pressure points.?? The patient was then intubated by anesthesia.?? The operative site was then prepped and draped in the usual sterile fashion.? A time-out was then performed. A 5 mm Visiport was used to enter the abdomen in the left upper quadrant. All layers of the abdominal wall were well visualized, the abdomen was insufflated and briefly surveyed for injury with no evidence of any associated injury to underlying bowel or organs. A 12 mm port was placed in the left lower quadrant and a 5 mm port in the upper midline under direct visualization. Evidence on inspection of incarcerated omentum within an umbilical hernia. Near the omentum was a knuckle of bowel that was slightly hemorrhagic, but did not appear necrotic. This most likely was the bowel that was previously incarcerated. At this time the decision was made to proceed with a laparoscopic ventral hernia repair, no need for bowel resection. Using the to ports the omentum was reduced with pulling from below and pressure above at the umbilicus. There was a large vessel within the omentum that had some bleeding, this was controlled with 5 mm clips. The omentum was gradually released using hook cautery and tension until it was completely reduced. The size of the defect was approximately 4 cm. A large piece of Echo Ventralight mesh 10 cm x 15 cm was chosen to repair the defect. Two 0 Prolene suture was secured on the long ends of the oval mesh and 0 Vicryl suture was used on the opposing short ends of the mesh to service trans fascial points of fixation. The mesh was then placed into the abdomen through the 12 mm port. Using an 11 blade a small incision was made at the umbilicus. The Abad Aleksey was entered into the abdomen through the middle of the hernia defect the echo positioning system was grasped and the mesh positioned over the defect to allow for appropriate overlap. The Abad Aleksey was then used to secure the trans fascial points of fixation superior, inferior, right lateral and left lateral on the mesh. Once the mesh was secured in place the echo positioning system was then removed in its entirety. The mesh was then further secured circumferentially with permanent tacks. The 12 mm port site was closed via the Abad-[place] and an 0 Vicryl stitch. All other ports were removed under direct visualization. The abdomen was then desufflated. All port sites were closed with 4-0 Monocryl suture. ? Sterile dressings were then applied. ? The patient was then woken and transported to the recovery area in stable condition. ? The patient tolerated the procedure well. Findings: Large umbilical hernia with incarcerated omentum and bowel. Anesthesia: GETA Surgeon: Chantale Hudson MD Estimated blood loss (mL): 5 Condition: stable Disposition: floor
--- NOTE | 2022-10-14 07:36 | P.ANES_ITS ---
Anesthesia Charges Start Date/Time Anesthesia Start Date: 10/14/22 Anesthesia Start Time: 05:05 Stop Date/Time Anesthesia Stop Date: 10/14/22 Anesthesia Stop Time: 07:35 Summary Emergency: [employer]
[2022-10-14] MEDS: KETOROLAC 15 MG/ML inj IVP ×2 (08:59→16:05)
--- NOTE | 2022-10-14 09:26 | W.PM.NB ---
Nerve Block Nerve Block Time Seen by Provider: 07:24 Date Seen: 10/14/22 Type of block requested by surgeon for post-operative analgesia: TAP Side: bilateral Time out performed: Yes Verification of patient name: Yes Verification of date of : Yes Site marking: site marked Name of person performing procedure: Angel Continuous monitoring Was continuous monitoring of O2 sat, B/P, fiberglass technician, recorded every 15 minutes?: Yes Procedure Checklist: sterile prep, needles and gloves Ultrasound guided. Images saved: Yes Medications given in 5ml increments after negative aspiration: Marcaine %: 0.25 mL: 30 Needle gauge: 20 and Exparel mL: 10 Patient tolerated procedure well: Yes Additional comments: Needle noted adjacent to nerve Block Charges Block Charge (with Pro Fee): TAP Bilateral Use of Ultrasound Machine for Block: Yes- US Guidance/pain block
[2022-10-14] MEDS: ACETAMINOPHEN 325 MG TABLET 650 MG PO (16:05)
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
[2022-10-14] MEDS: OXYCODONE 5 MG TABLET PO (19:59)
--- NOTE | 2022-10-14 20:47 | PC.NURSE ---
Discharge: Pt ambulates independently, tolerates PO food and fluids with no c/o nausea. She is voiding and passing gas. Pain 4-5/10, treated per eMAR. DC education provided in verbal and printed forms, pt verbalized understanding of instructions. Pt DC via WC at 2039 accompanied by her friend.
== END 2022-10-14 20:46 | disposition home or self-care (01) ==
LOC: ED 10-14 03:41 → SS 10-14 04:30 → MEDSURG 10-14 08:43
PROVIDERS: Emergency Provider Family Medicine; PCP Family Medicine; Visit Provider Surgery
PROC: 0FT44ZZ Resection of Gallbladder, Percutaneous Endoscopic Approach (ICD-10-PCS; CPT 47562; principal; 2022-10-14 05:00)
DX: K43.6 Other and unspecified ventral hernia with obstruction, without gangrene (principal); E66.01 Morbid (severe) obesity due to excess calories; Z68.43 Body mass index [BMI] 50.0-59.9, adult
CPT/HCPCS: 49594; 00752; 36415; 74177; 76942; 80048; 81001; 83605; 85025; 87086; 87186; 87635; 99140; 99284; 99285; A9270; C1781; C9290; J0330; J0690; J1885; J2060; J2250; J2370; J2405; J2704; J3010; J3490; J7030; J7120; Q9967

== ENCOUNTER 2024-02-25 17:05 | Emergency (ER) | payer BC, SELFPAY ==
[2024-02-25 17:11] VITALS: BP 161/100; PULSE 109; RESP 24; TEMP 35.9; O2SAT 98; BMI 59.9
--- NOTE | 2024-02-25 17:46 | ED.GENADULT ---
HPI - General Adult General Chief complaint: Abdominal Pain Stated complaint: hernia Time Seen by Provider: 02/25/24 17:35 History of Present Illness HPI narrative: This 48-year-old female comes in reporting abdominal pain with nausea and vomiting that began this morning. She has been taking Ozempic and doubled the does last week. She does not report any fever or blood in the vomit. She states that she had a hernia repaired about a year ago and feels that the tightness in her abdomen is similar. She does not report any herniation symptoms however at this time. Related Data Home Medications ?Medication ?Instructions ?Recorded ?Confirmed omeprazole 40 mg capsule,delayed 40 mg PO DAILY 10/13/22 10/13/22 release Previous Rx's ?Medication ?Instructions ?Recorded oxycodone 5 mg tablet 5 mg PO Q6H PRN pain #5 tabs 10/14/22 sennosides 8.6 mg capsule (senna) 8.6 mg PO DAILY PRN constipation 10/14/22 #90 caps amoxicillin 500 mg-potassium 1 tab PO BID #10 tabs 10/17/22 clavulanate 125 mg tablet (Augmentin) Allergies Allergy/AdvReac Type Severity Reaction Status Date / Time No Known Drug Allergies Allergy Verified 10/13/22 23:25 Review of Systems Status of ROS: Reports: 10 or more systems reviewed and unremarkable except as noted in History and below Narrative: Constitutional: No fevers, no weight gain or loss. Eyes: No discharge. No vision changes. HENT: No congestion, no sore throat, no ear pain. Cardiovascular: No chest pain, no palpitations. Respiratory: No shortness of breath, no wheezes, no cough. Gastrointestinal: Abdominal pain with nausea and vomiting. Genitourinary: No dysuria, no hematuria. Musculoskeletal: Normal range of motion. Skin: No rashes, no pruritis. Neurological: No dizziness, weakness, sensory change, speech change. Endo/Heme/Allergies: No bruising or bleeding. No polydipsia. Pysch: no suicidality, no anxiety, no insomnia. All other systems reviewed and are negative. [facility] Medical History (Updated 02/25/24 @ 20:03 by Lonny Monae MD) Partial small bowel obstruction (10/13/22) ?K56.600 - Partial intestinal obstruction, unspecified as to cause (ICD-10) Surgical History (Updated 12/31/22 @ 09:18 by Keyla Townsend) History of ventral hernia repair (10/14/22) ?Z98.890 - Other specified postprocedural states (ICD-10) ?Z87.19 - Personal history of other diseases of the digestive system (ICD-10) Family History (Updated 12/31/22 @ 09:18 by Keyla Townsend) Mother Drug dependence Father Drug dependence Social History Smoking Status: Never smoker Do you use any of these nicotine containing products: None How often do you have a drink containing alcohol: never AUDIT-C Alcohol total score: 0 Non-prescribed substance use: denies use Exam Narrative: Exam Narrative: Constitutional: Well-developed, well-nourished, no acute distress. HEENT: Normocephalic, atraumatic. Neck: Normal range of motion. Nontender. Supple. Heart: Regular. No murmurs. Borderline tachycardia. Intact distal pulses. Lungs: Clear to auscultation. No chest discomfort. No wheezes, rhonchi, or rales. Abdomen: Normal bowel sounds. Diffuse tenderness. No rebound tenderness. Genitalia: Deferred. Back: No midline tenderness. Normal range of motion. Extremities: Normal range of motion. No injury. Skin: Intact. No rash. Warm. No erythema or pallor. Neurologic: No altered sensation. No weakness. Alert and oriented. Psychiatric: No suicidality. No anxiety or depression. No insomnia. Nursing notes and vitals signs are reviewed. Const: Vital Signs, click to edit/add: Vital Signs - 24 hr 02/25/24 17:11 02/25/24 18:55 Temperature 96.7 F L Pulse Rate [Pulse Oximeter] 109 H 102 H Respiratory Rate 24 16 Blood Pressure [Ri ght Upper Arm] 161/100 H 174/94 H Pulse Oximetry 98 93 Oxygen Delivery Me thod Room Air Course Vital Signs Vital signs: Initial Vital Signs Temperature 96.7 F L 02/25/24 17:11 Temperature Source Tympanic 02/25/24 17:11 Pulse Rate 109 H 02/25/24 17:11 Pulse Rhythm Regular 02/25/24 17:11 Respiratory Rate 24 02/25/24 17:11 Blood Pressure 161/100 H 02/25/24 17:11 Blood Pressure Mean 120 H 02/25/24 17:11 Blood Pressure Position Sitting 02/25/24 17:11 Pulse Oximetry 98 02/25/24 17:11 Vital Signs Temperature 96.7 F L 02/25/24 17:11 Pulse Rate 109 H 02/25/24 17:11 Respiratory Rate 24 02/25/24 17:11 Blood Pressure 161/100 H 02/25/24 17:11 Pulse Oximetry 98 02/25/24 17:11 Temperature 96.7 F L 02/25/24 17:11 Pulse Rate 102 H 02/25/24 18:55 Respiratory Rate 16 02/25/24 18:55 Blood Pressure 174/94 H 02/25/24 18:55 Pulse Oximetry 93 02/25/24 18:55 Oxygen Delivery Method Room Air 02/25/24 18:55 Medications Administered Medications: Discontinued Medications Generic Name Dose Route Start Last Admin Trade Name Freq PRN Reason Stop Dose Admin Sodium Chloride 1,000 mls @ 1,000 mls/hr 02/25/24 17:45 02/25/24 18:34 0.9 % Sodium Chloride 1000 Ml IV 02/25/24 18:44 1,000 mls/hr .Q1H HANK Administration Ketorolac Tromethamine 30 mg 02/25/24 17:44 02/25/24 18:34 Ketorolac 30 Mg/Ml Inj IVP 02/25/24 17:45 30 mg ONCE ONE Administration Ondansetron HCl 4 mg 02/25/24 17:44 02/25/24 18:34 Ondansetron 2 Mg/Ml Inj IVP 02/25/24 17:45 4 mg ONCE ONE Administration Medical Decision Making MDM Narrative Medical decision making narrative: This patient comes in with nausea and vomiting that began this morning. It is likely related to doubling her dose of Ozempic. An IV was established where she received a L of normal saline and 4 mg of Zofran. She states that she is feeling significantly better. Lab results returned with reassuring findings except it is noted that her white count is elevated at around 18,000. Urinalysis also shows greater than 100 red blood cells per high-powered field. The patient states that she has a cyst in her groin and this has been bleeding some recently. She does not feel like she has symptoms of an infection. She feels okay to return home. She did received prescriptions for Zofran and Toradol from a [employer] machine. Lab Data Labs: Lab Results 02/25/24 02/25/24 Range/Units 17:40 18:23 WBC 18.45 H (4.50-11.00) K/uL RBC 5.30 H (4.00-5.20) m/uL Hgb 14.9 (12.0-16.0) gm/dL Hct 46.0 (33.0-51.0) % MCV 87 (80-100) fL MCH 28 (26-34) pg MCHC 32 (32-36) gm/dL RDW Coeff of Aislinn 13.7 (11.5-15.5) % Plt Count 422 (140-440) K/uL Neut % (Auto) 84.4 H (42.0-72.0) % Lymph % (Auto) 10.5 L (20-44) % [place] % (Auto) 4.1 (0.0-11.0) % Eos % (Auto) 0.5 (0.0-7.0) % Baso % (Auto) 0.3 (0.0-3.0) % Neut # (Auto) 15.60 H (1.7-7.0) K/uL Lymph # (Auto) 1.90 (0.90-2.90) K/uL [place] # (Auto) 0.80 (0.00-0.90) K/UL Eos # (Auto) 0.10 (0.00-0.50) K/uL Baso # (Auto) 0.10 (0.00-0.30) K/uL Abs Immat Gran (auto) 0.00 (0.00-0.30) K/uL Imm/Tot Granulo (auto) 0.2 % Sodium 137 (135-149) mmol/L Potassium 4.0 (3.6-5.1) mmol/L Chloride 103 (96-114) mmol/L Carbon Dioxide 24 (20-32) mmol/L Anion Gap 10 (7-15) mEq/L BUN 17 (7-30) mg/dL Creatinine 0.6 (0.5-1.5) mg/dL Estimated Creat Clear 100.94 Estimated GFR 109 ml/min Glucose 166 H (60-115) mg/dL Calcium 9.8 (8.4-10.6) mg/dL Urine Color Red A (Yellow) Urine Appearance Clear (Clear) Urine pH 6.0 (5.0-8.5) Ur Specific [place] 1.020 (1.000-1.030) Urine Protein 1+ A (Negative) Urine Glucose (UA) 2+ A (Negative) Urine Ketones 2+ A (Negative) Urine Blood 3+ A (Negative) Urine Nitrite Negative (Negative) Urine Bilirubin Negative (Negative) Urine Urobilinogen 0.2 (0.2-1.0) Ur Leukocyte Esterase Negative (Negative) Urine RBC >100 A (0-2) Urine WBC 0-2 (0-5) Urine WBC Clumps Few A (None) Ur Squamous Epith Cells None (None-Few) Discharge Plan Discharge Clinical Impression: Adverse drug effect, Leukocytosis, Vomiting Patient Disposition: Home, Self-Care Condition: Improved Additional Instructions: Take medications as needed and directed. Follow up with MD for ongoing management. Return if symptoms are recurrent or worsening. Prescriptions: No Action omeprazole 40 mg capsule,delayed release(DR/EC) 40 mg PO DAILY oxycodone 5 mg tablet 5 mg PO Q6H PRN (Reason: pain) Qty: 5 0RF senna 8.6 mg capsule 8.6 mg PO DAILY PRN (Reason: constipation) Qty: 90 0RF amoxicillin-pot clavulanate [Augmentin] 500-125 mg tablet 1 tab PO BID Qty: 10 0RF Follow Up/Referrals: Laina Deluca DO [Primary Care Provider] - Stand Alone Forms: [employer] Info Instructions
[2024-02-25 17:55] LABS: Basophils Percent Auto 0.3 % (0.0-3.0); Eosinophils Percent Auto 0.5 % (0.0-7.0); Hemoglobin* 14.9 gm/dL (12.0-16.0); Immature Granulocytes Pct Auto 0.2 %; Lymphocytes Percent Auto 10.5 % (20-44); Mean Corpuscular HGB Conc 32 gm/dL (32-36); Mean Corpuscular Hemoglobin 28 pg (26-34); Mean Corpuscular Volume 87 fL (80-100); Monocytes Percent Auto 4.1 % (0.0-11.0); Neutrophils Percent Auto 84.4 % (42.0-72.0); Platelet Count* 422 K/uL (140-440); RDW Coefficient of Variation % 13.7 % (11.5-15.5); White Blood Count* 18.45 K/uL (4.50-11.00)
[2024-02-25 18:04] LABS: Slide Review Reflex No
[2024-02-25 18:13] LABS: Chloride* 103 mmol/L (96-114); Sodium* 137 mmol/L (135-149)
[2024-02-25 18:16] LABS: Anion Gap 10 mEq/L (7-15); Blood Urea Nitrogen* 17 mg/dL (7-30); Carbon Dioxide* 24 mmol/L (20-32); Creatinine* 0.6 mg/dL (0.5-1.5); Est. Creatinine Clearance* 100.94; Estimated Glomerular Filt Rate 109 ml/min; Glucose* 166 mg/dL (60-115)
[2024-02-25 18:17] LABS: Calcium* 9.8 mg/dL (8.4-10.6)
--- OUTSIDE RECORDS SUMMARY | 2024-02-25 18:32 | XMS_ITS | Clinical Summary ---
Author Organization [facility] Address [place], [place] [address] Care Team Providers Care Butadiene Converter Utility Operator Name Role Phone Laina Deluca DO Primary Care Provider [phone] Allergies No known active allergies Medications Medication Sig Dispensed Refills Start Date End Date Status FreeStyle Naida 3 Sensor for continuous blood glucose monitor (CGM)Indications:T ype 2 diabetes mellitus with hyperglycemia, without long-term current use of insulin (HC) Wear each for 14 days 2 Each 12 12/08/2022 Active albuterol HFA (PRO-AIR; VENTOLIN; PROVENTIL) 90 mcg/actuation inhaler Inhale 2 Puffs by mouth every 4 hours if needed. Active metFORMIN (GLUCOPHAGE) 1,000 mg tabletIndications: Type 2 diabetes mellitus with hyperglycemia, without long-term current use of insulin (HC) Take 1 Tablet (1,000 mg) by mouth two times daily with meals. 180 Tablet 3 06/15/2023 Active lisinopriL (PRINIVIL; ZESTRIL) 20 mg tabletIndications: HTN (hypertension) Take 1 Tablet (20 mg) by mouth once daily. 90 Tablet 3 06/15/2023 Active empagliflozin (JARDIANCE) 10 mg tabletIndications: Type 2 diabetes mellitus with hyperglycemia, without long-term current use of insulin (HC) Take 1 Tablet (10 mg) by mouth once daily. 90 Tablet 3 06/15/2023 Active semaglutide (Ozempic) 2 mg/dose (8 mg/3 mL) penIndications:Typ e 2 diabetes mellitus with hyperglycemia, without long-term current use of insulin (HC) Inject 0.75 mL (2 mg) subcutaneous once weekly. 9 mL 3 11/20/2023 Active nystatin powder (MYCOSTATIN) powderIndications: Intertrigo Apply 1 Strip topically to affected area(s) 3 times daily if needed (rash). 60 g 3 08/31/2023 Active Insulin [place], Disposable, (Novofine 32) 32 gauge x /4Indications:Ty pe 2 diabetes mellitus with hyperglycemia, without long-term current use of insulin (HC),Morbid exogenous obesity (HC) For administering insulin at home. Max use once per day 100 Each 09/28/2023 Active sennosides (Senna) 8.6 mg tabletIndications: Chronic constipation TAKE TWO TABLETS BY MOUTH ONCE DAILY NEEDED FOR CONSTIPATION 180 Tablet 1 10/13/2023 Active valACYclovir (VALTREX) 1 gram tablet Take 1 g by mouth two times daily. 10/29/2023 Active semaglutide (OZEMPIC) 1 mg/dose (4 mg/3 mL) penIndications:Typ e 2 diabetes mellitus with hyperglycemia, without long-term current use of insulin (HC) Inject 1 mg subcutaneous once weekly. 3 mL 12/18/2023 Active Active Problems Problem Noted Date Diagnosed Date Type 2 diabetes mellitus wit h hyperglycemia, without long-term current use of insulin 11/21/2022 HTN (hypertension) 11/21/2022 Uterine leiomyoma 11/21/2022 ASCUS of cervix with negative high risk HPV 05/01 Overview: Note in office visit 04/29/2022: Due for Pap smear today. Does not remember when her last Pap smear was; believes she has had atypical cells found on previous Pap smear, but follow-up was negative. Is unsure of when this was. No records found to review. 04/2022 ASCUS/HPV negative 08/2023 NIL/HPV negative. Plan: Pap/HPV due 08/2026. Chronic pain of left knee 04/29/2022 Morbid exogenous obesity 04/29/2022 Encounters Date Type Department Care Team Description 02/01/[address] [facility] [address] [place] [address] Lee Joe MD <No scans attached> 01/29/2024 9:45 AM CDT Ancillary Procedure [facility] [address] [place] [address] [address] 01/29/2024 Travel 01/04/[address] [facility] [address] [address] Laina Deluca, Form 12/10/[address] [facility] [address] [address] Laina Deluca, DO Refill Request (Ozempic 4mg/3ml pen ) 12/04/2023 9:20 AM CDT Office Visit [facility] [address] [address] Laina Deluca, DO Diabetes (3 month check, labs) 12/04/2023 Travel from Last 3 Months Immunizations Name Administration Dates Next Due COVID-19 Vaccine Spikevax (M oderna 50mcg/0.5mL) 12YO+ [id number] Formula PF 04/24/2023 COVID-19 vaccine (Moderna Bhavesh zulma 50mcg/0.25mL) PF, MDV 01/02/2022 COVID-19 vaccine (Pfizer-Bio NTech 30mcg/0.3mL) 12YO+ BIVALENT PF, MDV 04/29/2022 COVID-19 vaccine (Pfizer-BioNTech 30mcg/0.3mL) P F, MDV 10/19/2020,09/28/2020 Influenza, IIV4 04/24/2023,04/29/2022 Pneumococcal Conj 20-valent (Prevnar 20) 024 Tdap 09/01/2017 Family History Medical History Relation Name Comments Anxiety disorder Mother Coronary artery disease Mother Hypertension Mother Scleroderma Mother Cancer-colon No Family History Relation Name Status Comments Mother Social History Tobacco Use Types Packs/Day Years Used Date Smoking Tobacco: Never Smokeless Tobacco: Never Tobacco Cessation:Counseling Given: No Alcohol Use Standard Drinks/Week Comments Yes 0 (1 standard drink = 0.6 oz pur e alcohol) rare/social PHQ-2 Answer Date Recorded PHQ-2 TOTAL SCORE 1 08/28/2023 Social Connections Answer Date Recorded Frequency of Communication with Friends and Fami ly 0 12/04/2023 Financial Resource Strain Answer Date R ecorded Difficulty of Paying Living Expenses 3 12/04/2023 Difficulty of Paying Living Expenses Not on file 12/04/2023 Food Insecurity Answer Date Recorded Worried About Running Out of Food in the Last Ye ar 1 12/04/2023 Transportation Needs Answer Date Record ed Lack of Transportation (Medical) 1 12/04/2023 Housing Stability Answer Date Recorded Unable to Pay for Housing in the Last Year 1 12/04/2023 Sex and Gender Information Value Date Recorded Sex Assigned at Not on file Gender Identity Not on file Sexual Orientation Not on file Obstetrics History Para Term AB IAB SAB Ectopic Multiple Livin g Live Births 0 0 0 0 0 0 0 0 0 0 0 Last Filed Vital Signs Vital Sign Reading Time Taken Comments Blood Pressure 135/86 12/04/2023 10:18 AM CDT Pulse 84 12/04/2023 9:34 AM CDT Temperature - - Respiratory Rate - - Oxygen Saturation 97% 12/04/2023 9:34 AM CDT Inhaled Oxygen Concentration - - Weight 165.1 kg (364 lb) 12/04/2023 9:34 AM CDT Height 162.9 cm (5' 4.13) 08/28/2023 10:[address] Body Mass Index 62.22 08/28/2023 10:11 AM DAIRY EQUIPMENT SPECIALIST Plan of Treatment Upcoming Encounters Date Type Department Care Team (Late st Contact Info) Description 03/25/2024 9:00 AM CDT Orders Only [facility] [address] [place] [address] [place], [place] 03/25/2024 9:20 AM CDT Office Visit [facility] [address] [place] [address] Laina Deluca Rosanna, DO [address] [place] [address] Health Maintenance Due Date Last Done Comments Hepatitis B series for Diabe josesito (1 of 3 - 19+ 3-dose series) 1992 Zoster (shingles) series for age 50+ (1 of 2) 2023 Influenza for age 50-64 02/28/2024 04/24/2023, 04/29 BMI (ht and wt on same day) for age 18+ 08/27/2024 08/28/2023 Depression screening for age 12+ 08/30/2024 08/31/2023, 08/28/2023, 08/28/2023, Additional history exists Mammogram for age 45-75 09/24/2024 09/25/2023 Pap test for age 21-65 08/27/2026 , 08/28/2023, 04/29/2022, Additional history exists Fecal testing sDNA-FIT ([place] guard) for age 45-75 09/27/2026 09/28/2023 Tetanus booster 09/02/2027 09/01/2017 Lipids for age 45-75 05/22/2028 05/22/2023, 05/09/20 22 Tdap Completed 09/01/2017 HIV for age 15-65 Completed 04/29/2022 COVID-19 vaccine series Completed 04/24/20 23, 04/29/2022, 01/02/2022, Additional history exists Hepatitis C screening for ag e 18-79 Completed 08/28/2023 Pneumococcal series for age 6-64 Completed 08/28/19 24 Procedures Procedure Name Priority Date/Time Associated Diagnosis Comments US PELVIS COMPLETE TV Routine 01/29/2024 11:50 AM CDT Ovarian cyst, right HEMOGLOBIN A1C Routine 12/04/2023 9:25 AM CDT Type 2 diabetes mellitus with hyperglycemia, without long-term current use of insulin (HC) SDNA-FIT EXTERNAL (COLOGUARD) Routine 09/28/2023 4:45 AM CDT Screening for colon cancer XR MAMMO JULIUS BILAT SCREEN Routine 09/25/2023 11:17 AM CDT Encounter for screening mammogram for malignant neoplasm of breast ANTI HCV Routine 08/28/2023 11:29 AM DAIRY EQUIPMENT SPECIALIST Need for hepatitis C screening test HPV THIN PREP Routine 08/28/2023 10:59 AM DAIRY EQUIPMENT SPECIALIST Screening for cervical cancer LIPID PANEL W REFLEX MEASURED LDL Routine 05/22/2023 7:53 AM DAIRY EQUIPMENT SPECIALIST Type 2 diabetes mellitus with hyperglycemia, without long-term current use of insulin (HC) ANTI HIV 1/2 Routine 04/29/2022 4:12 PM CDT Screening examination for STD (sexually transmitted disease) from Last 3 Months or Most Recently Relevant to Health Maintenance Results * US PELVIS COMPLETE TV (01/29/2024 11:50 AM CDT) Anatomical Region Laterality Modality Pelvis, OVARIES, UTERUS Ultrasou nd 01/29/2024 3:05 PM CDT Impressions 01/29/2024 3:05 PM CDT Mildly decreased size of the right ovarian cyst compared to the prior study. Dictated by Fran Serna MD @ 01/29/2024 3:05:35 PM (Electronically Signed) Narrative 01/29/2024 3:05 PM CDT For Patients: ??As a result of the Cures Act, medical imaging exams and procedure reports are released immediately into your electronic medical record. ??You may view this report before your referring provider. ??If you have questions, please contact your health care provider. CLINICAL HISTORY: Ovarian cyst TECHNIQUE: 2D grajeda scale and color Doppler images were acquired of the pelvis using a transvaginal approach. Comparison 07/17/2023 FINDINGS: Partially exophytic mid uterine fibroid is present measures 8.7 x 7.1 x 8.1 cm. The endometrial lining measures 30 mm in thickness. The left ovary is not visualized and the right ovary measures 5.6 x 4.1 x 4.2 cm. The right ovary demonstrates normal arterial and venous blood flow on color Doppler analysis. There are no suspicious fluid collections within the cul-de-sac. Right ovarian cyst is present measuring 4.2 x 2.8 x 3.6 cm, previously measuring 5.3 x 2.7 x 3.6 cm. Procedure Note Fran Serna MD - 01/29/2024 For Patients: As a result of the Cures Act, medical imagingexams and procedure reports are released immediately into your electronicmedical record. You may view this report before your referring provider.If you have questions, please contact your health care provider. CLINICAL HISTORY: Ovarian cyst TECHNIQUE: 2D grajeda scale and color Doppler images were acquired of the pelvis using atransvaginal approach. Comparison 07/17/2023 FINDINGS: Partially exophytic mid uterine fibroid is present measures 8.7 x 7.1 x8.1 cm. The endometrial lining measures 30 mm in thickness. The left ovary is not visualized and the right ovary measures 5.6 x 4.1 x4.2 cm. The right ovary demonstrates normal arterial and venous blood flowon color Doppler analysis. There are no suspicious fluid collectionswithin the cul-de-sac. Right ovarian cyst is present measuring 4.2 x 2.8 x3.6 cm, previously measuring 5.3 x 2.7 x 3.6 cm. IMPRESSION: Mildly decreased size of the right ovarian cyst compared to the priorstudy. Dictated by Fran Serna MD @ 01/29/2024 3:05:35 PM (Electronically Signed) Lee Joe MD * (ABNORMAL) HEMOGLOBIN A1C MONITORING (POCT) (12/04/2023 9:25 AM CDT) HEMOGLOBIN A1C MONITORING (POCT) 6.5(H) <=6.4 % 12/04/2023 9:34 AM CDT [facility] Blood BLOOD SPECIMEN / Unknown Venipuncture / Unknown 12/04/2023 9:25 AM CDT 12/04/2023 9:25 AM CDT Narrative [facility] - 12/04/2023 9:34 AM CDT ? (<=6.9%) ? Indicates good control ? (7.0% to 7.9%) ? Indicates fair control ? (>=8.0%) ? Indicates poor control ?? NOTE: ??These thresholds are guidelines and ?individual targets may vary. Falsely low levels may be seen with: Recent Transfusion, Recent Significant Blood Loss, Hemolytic Diseases, or Falsely elevated levels may be seen with: Untreated Anemias, Splenectomy ? Laina Deluca CHEMISTRY [facility] [place] [address], * SDNA-FIT EXTERNAL (COLOGUARD) (09/28/2023 4:45 AM CDT) NONINV COLON CA DNA+OCC BLD SCRN STL-IMP Negative Negative 10/04/2023 8:58 AM CDT [facility] (CLIA #:[id number]) Comment: NEGATIVE TEST RESULT. A negative Cologuard result indicates a low likelihood that a colorectal cancer (CRC) or advanced adenoma (adenomatous polyps with more advanced pre-malignant features) ??is present. The chance that a person with a negative Cologuard test has a colorectal cancer is less than 1 in 1500 (negative predictive value >99.9%) or has an ??advanced adenoma is less than ??5.3% (negative predictive value 94.7%). These data are based on a prospective cross-sectional study of 10,000 individuals at average risk for colorectal cancer who were screened with both Cologuard and colonoscopy. (Quentin Meyers al, N Engl J Med 2014;370(14):1286- 1297) The normal value (reference range) for this assay is negative. COLOGUARD RE-SCREENING RECOMMENDATION: Periodic colorectal cancer screening is an important part of preventive healthcare for asymptomatic individuals at average risk for colorectal cancer. ??Following a negative Cologuard result, the [place] Cancer Society and U.S. Multi-Society Task Force screening guidelines recommend a Cologuard re-screening interval of 3 years. References: [employer] Cancer Society Guideline for Colorectal Cancer Screening: https://www.cancer.org/cancer/tlvoy-xwajfs-yptxam/evhearszs-epvphcwty-ssacquv/ac s-rec ommendations.html.; Duarte DEWITT, Rivka GARCIA, Esvin MIRZA, Colorectal Cancer Screening: Recommendations for Physicians and Patients from the U.S. Multi-Society Task Force on Colorectal Cancer Screening , Am J Gastroenterology 2017; 112:9112-9760. TEST DESCRIPTION: Composite algorithmic analysis of stool DNA-biomarkers with hemoglobin immunoassay. ?? Quantitative values of individual biomarkers are not reportable and are not associated with individual biomarker result reference ranges. Cologuard is intended for colorectal cancer screening of adults of either sex, 45 years or older, who are at average-risk for colorectal cancer (CRC). Cologuard has been approved for use by the U.S. FDA. The performance of Cologuard was established in a cross sectional study of average-risk adults aged 50-84. Cologuard performance in patients ages 45 to 49 years was estimated by sub-group analysis of near-age groups. Colonoscopies performed for a positive result may find as the most clinically significant lesion: colorectal cancer [4.0%], advanced adenoma (including sessile serrated polyps greater than or equal to 1cm diameter) [20%] or non- advanced adenoma [31%]; or no colorectal neoplasia [45%]. These estimates are derived from a prospective cross-sectional screening study of 10,000 individuals at average risk for colorectal cancer who were screened with both Cologuard and colonoscopy. (Quentin Andrade et al, N Engl J Med 2014;370(14):8717-9761.) Cologuard may produce a false negative or false positive result (no colorectal cancer or precancerous polyp present at colonoscopy follow up). A negative Cologuard test result does not guarantee the absence of CRC or advanced adenoma (pre-cancer). The current Cologuard screening interval is every 3 years. ([employer] Cancer Society and U.S. Multi-Society Task Force). Cologuard performance data in a 10,000 patient pivotal study using colonoscopy as the reference method can be accessed at the following location: www.[employer]Tablefinder/results. Additional description of the Cologuard test process, warnings and precautions can be found at www.[employer].com. Stool specimen (specimen) (Rectum) 09/28/2023 4:45 AM CDT 09/30/2023 1:31 PM CDT Laina Deluca DO [facility] [employer] (CLIA #:[id number]) [place] [address], * XR MAMMO JULIUS BILAT SCREEN (09/25/2023 11:17 AM CDT) Anatomical Region Laterality Modality BREASTS, Breast Left, Breast Right Bilateral Mammography Impressions 09/28/2023 10:19 AM CDT ??There is no radiographic evidence for malignancy. ??Recommend annual mammograms. MAMMOGRAM ASSESSMENT: ??ACR 1 Negative PATIENTS: You will also receive a letter with your examination results in an easy to read format. ??If you have questions about your results, please contact your referring provider. Narrative 09/28/2023 10:19 AM CDT For Patients: As a result of the Cures Act, medical imaging exams and procedure reports are released immediately into your electronic medical record. You may view this report before your referring provider. If you have questions, please contact your health care provider. XR MAMMO JULIUS BILAT SCREEN [[id number]] CLINICAL HISTORY: ??This is an asymptomatic 48 y.o. patient. INDICATION FOR EXAM: Mammogram Screening. TECHNIQUE: CC & MLO views were obtained. ??This study was evaluated with the assistance of Computer-Aided Detection. Breast Tomosynthesis was used in interpretation. COMPARISON FILM: This is a baseline study. ? FINDINGS: ??The breasts have scattered areas of fibroglandular density. There are no dominant masses, suspicious micro calcifications or areas of architectural distortion. Laina Deluca DO MAMMO * ANTI HCV (08/28/2023 11:29 AM DAIRY EQUIPMENT SPECIALIST) HEPATITIS C ANTIBODY Non-Reacti ve Non-React tana 08/28/2023 10:26 PM DAIRY EQUIPMENT SPECIALIST [facility] Comment:Please note, per www .CDC.gov: If a patient is known to be at high risk of HCV infection, or is symptomatic, and the physician's suspicion of HCV infection is high, HCV RNA testing is often employed and is of diagnostic value, even after an initial negative anti-HCV test result. Blood BLOOD SPECIMEN / Unknown Venipuncture / Unknown 08/28/2023 11:29 AM DAIRY EQUIPMENT SPECIALIST 08/28/2023 11:30 AM DAIRY EQUIPMENT SPECIALIST Laina Deluca DO SEND OUTS Performing Organization Address City/[facility]/ZIP Co de Phone Number [facility] [address] [place] [address], * HPV HIGH RISK (08/28/2023 10:59 AM DAIRY EQUIPMENT SPECIALIST) TYPE 16 Negative Negative 09/02/2023 5:14 PM DAIRY EQUIPMENT SPECIALIST [facility] TYPE 18 Negative Negative 09/02/2023 5:14 PM DAIRY EQUIPMENT SPECIALIST [facility] OTHER HIGH RISK TYPES Negative Negative 09/02/2023 5:14 PM DAIRY EQUIPMENT SPECIALIST [facility] Other (Cervical) Non-Blood / Unknown 08/28/2023 10:59 AM DAIRY EQUIPMENT SPECIALIST 08/31/2023 10:41 AM DAIRY EQUIPMENT SPECIALIST Narrative [facility] - 09/02/2023 5:14 PM DAIRY EQUIPMENT SPECIALIST HPV types 16, 18, 31, 33, 35, 39, 45, 51, 52, 56, 58, 59, 66 and 68 DNA were undetectable or below the pre-set threshold. Methodology: Julian Polly 4800 HPV Test Laina Deluca DO MICROBIOLOGY Performing Organization Address [facility] Co de Phone Number [facility] [address] [place] [address], * LIPID PANEL W REFLEX MEASURED LDL (05/22/2023 7:53 AM DAIRY EQUIPMENT SPECIALIST) CHOLESTEROL,TOTAL 191 100 - 199 mg/dL 05/22/2023 1:47 PM DAIRY EQUIPMENT SPECIALIST [facility] Comment: Cholesterol, Total Reference Ranges Desirable <200 mg/dL Borderline 200-239 mg/dL High >=240 mg/dL TRIGLYCERIDES 127 <150 mg/dL 05/22/2023 1:47 PM DAIRY EQUIPMENT SPECIALIST [facility] HDL CHOLESTEROL 61 >40 mg/dL 1:47 PM DAIRY EQUIPMENT SPECIALIST [facility] NON-HDL CHOLESTEROL 130 <145 mg/dl 05/22/2023 1:47 PM DAIRY EQUIPMENT SPECIALIST [facility] CHOL/HDL RATIO 3.13 <4.50 05/22/2023 1:47 PM DAIRY EQUIPMENT SPECIALIST [facility] LDL CHOLESTEROL 105 <=130 mg/dL 05/22/2023 1:47 PM DAIRY EQUIPMENT SPECIALIST [facility] VLDL CHOLESTEROL 25 <=30 mg/dL 05/22/2023 1:47 PM DAIRY EQUIPMENT SPECIALIST [facility] PROVIDER ORDERED STATUS RANDOM 05/22/2023 1:47 PM DAIRY EQUIPMENT SPECIALIST [facility] Blood BLOOD SPECIMEN / Unknown Venipuncture / Unknown 05/22/2023 7:53 AM DAIRY EQUIPMENT SPECIALIST 05/22/2023 7:53 AM DAIRY EQUIPMENT SPECIALIST Laina Deluca DO CHEMISTRY [facility] [employer] [facility] [address] [place] [address], [place] * ANTI HIV 1/2 (04/29/2022 4:12 PM CDT) HIV-1/HIV-2 ANTIBODY Non-Reacti ve Non-Reacti ve 04/30/2022 6:25 PM CDT [facility] Comment:HIV-1 p24 and HIV-1/ HIV-2 Ab not detected. Blood BLOOD SPECIMEN / Unknown Venipuncture / Unknown 04/29/2022 4:12 PM CDT 04/29/2022 4:13 PM CDT Laina Deluca DO SEND OUTS [facility] [employer] [facility] [address] [place] [address], [place] from Last 3 Months or Most Recently Relevant to Health Maintenance Care Teams Butadiene Converter Utility Operator Relationship Specialty Start Date End Date Laina Deluca DO [address] [place] [address] PCP - General Family Practice 04/29/22
--- OUTSIDE RECORDS SUMMARY | 2024-02-25 18:32 | XMS_ITS | Data Portability ---
Author Organization [employer], PMG_PMA_VPMA Office Address 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 She is to follow up with her PCP bladimir Not available 10/11/2021 10:25:22 11/28/2021 11/28/2021 46 yo woman with dysuria. Was treated with Macrobid one month ago Course/treatm ent as per HPI. PE-as above: WDWN woman in NAD, normal insight and affect, nontoxic appearing Impression: Acute UTI Plan: Bactrim DS BID x 7, Pyridium 200mg TID x 2 days, monitor for red flag s/s of fever, back pain, nausea. If UTI returns she is to present for in person evaluation and urine culture- she agrees with treatment plan bladimir Not available 11/28/2021 14:31:06 Plan of Treatment Reminders Order Date Submit Date Provider Last Modified By Organization Details Last Modified Time Details Appointments None recorded. Lab None recorded. Referral physical therapy back referral 2017 018 [email or web address], [address], [place], [address], 8 13:40:41 Procedures None recorded. Surgeries None recorded. Imaging None recorded. Medication Orders Medrol (Keshav) 4 mg tablets in a dose pack 2017 018 [facility]armacy #1905, [address] [place], [address], 8 09:46:45 cyclobenza anuja 10 mg tablet 2017 018 [facility] [address] [place], [address], 8 09:46:43 Macrobid 100 mg capsule 2021 [facility] [address] [place], [address], 2 10:25:53 Pyridium 200 mg tablet 2021 [facility]/Pharmacy #1905, [address] [place], [address], 2 10:25:45 albuterol sulfate HFA 90 mcg/actuat ion aerosol inhaler 2021 [facility] [address] [place], [address], 2 10:25:55 benzonatat e 200 mg capsule 2021 [facility]/Pharmacy #1905, [address] [place], [address], 2 10:25:44 Pyridium 200 mg tablet 2021 [facility]/Pharmacy #1905, [address] [place], [address], 14:31:44 Bactrim DS 800 mg-160 mg tablet 2021 022 [facility]/Pharmacy #2564, [address] [place], [address], 14:31:44 Patient TargetsNo targets recorded. Patient Instructions Encounter Date Encounter Id Patient Instructions Last Modified By Organization Details Last Modified Time 10/11/2021 [id number] Urinary Tract Infection (UTI) in Women: Care Instructions [email or web address] Not available 10/11/2021 10:25:26 Urinary Tract Infection (UTI) in Women: Care Instructions Not available 10/11/2021 10:25:26 contact precautions* LACHELLE Not available 06/15/2022 05:11:23 airborne precautions* LACHELLE Not available 06/15/2022 05:09:57 droplet precautions* LACHELLE Not available 06/15/2022 05:09:57 10 things to do when you have covid-19 [email or web address] Not available 10/11/2021 10:25:26 Thank you for using [facility]. I am sorry you are not feeling well. Your history and exam are consistent with a COVID-19 infection. Treatment is focused on controlling the symptoms. Start Amberly-D 24-hour dosing once daily for sinus symptom control. This will reduce post nasal drip and improve your sore throat and cough. Start prescription benzonatate 200mg three time daily as needed for additional cough control. Take two extra strength Tylenol every 6-8 hours for fever and pain control. You [...] 10-14 days from the onset of symptoms. If, at day 10, you have not had any fever or chills for 24 consecutive hours without having to use Tylenol or Ibuprofen AND your symptoms are mild and improving, you may break quarantine and resume social distancing. If your fever or symptoms have not improved/resolved , then you should quarantine for the full 14 days. Should symptoms worsen, you develop worsening shortness of breath or other symptoms of concern, and you are unable to continue to care for yourself, you should present to an urgent care or emergency department for in person evaluation. bladimir Not available 10/11/2021 10:22:58 11/28/2021 [id number] Urinary Tract Infection (UTI) in Women: Care Instructions bladimir Not available 11/28/2021 14:31:28 Thank you for using [facility]. I am sorry you are not feeling well. Your history and physical exam are consistent with a urinary tract infection. Studies have indicated that testing for a UTI when symptoms are present is not necessary and the standard of care is to treat with antibiotics if patients present with symptoms such as yours. I have prescribed antibiotics, take as directed, and complete the entire course. You should [...] fever, or any other symptoms of concern. [email or web address] Not available 11/28/2021 14:24:52 Reason for Referral Referring Physician: Tracey Mckeon, Internal Medicine, Encounter Date: 10/06/2017 Results Created Date Observation Date Name Description Value Unit Range Abnormal Flag Note LastModifiedBy Organization Detail LastModifiedTime 05/30/20 18 09/01/2017 XR, knee, 3 view No observ ation record ed. [facility] ([facility] Available) [address], [place], [address], 05/31/2018 09:46:39 05/30/20 18 09/01/2017 XR, ankle , 3 or more view No observ ation record ed. [facility] ([facility] Available) [address], [place], [address], 05/31/2018 09:46:38 05/30/20 18 09/01/2017 XR, knee, 3 view No observ ation record ed. [facility] (Virtual Visits Available) [address], [place], [address], 05/31/2018 09:18:58 05/31/20 18 09/01/2017 XR, ankle , 3 or more view No observ ation record ed. [facility] (Virtual Visits Available) [address], [place], [address], 05/31/2018 09:18:58 Result Notes None recorded. Procedures Surgical History None recorded. Imaging Results Imaging Date Name Status LastModified by Organ ation Details LastModified Time 09/01/2017 XR, knee, 3 view completed [facility] ([facility] Available) [address], [place], [address], 05/31/2018 09:46:39 09/01/2017 XR, ankle, 3 or more view completed [facility] ([facility] Vis[facility] Available) [address], [place], [address], 05/31/2018 09:46:38 09/01/2017 XR, knee, 3 view completed [facility] ([facility] Visits Available) [address], [place], [address], 05/31/2018 09:18:58 09/01/2017 XR, ankle, 3 or more view completed [facility] ([facility] Visits Available) [address] [place], [address], 05/31/2018 09:18:58 Procedure Notes None recorded. Medical Equipment None Reported. Allergies No known drug allergies Medications Name Sig Start Date Stop Date Status Note LastModified by Organization Details LastModified Time cyclobenzap rine 10 mg tablet Take 1 tablet 3 times a day by oral route as needed. active Not Available Not Available No t Available benzonatate 200 mg capsule Take 1 capsule 3 times a day by oral route for 5 days. 2021 active Not Available Not Available Not Avai lable Pyridium 200 mg tablet Take 1 tablet 3 times a day by oral route as needed for 2 days. 2021 active Not Available Not Available Not Avai lable triamcinolo ne acetonide 0.1 % topical cream 10/06 completed Not Available Not Available Not Available Macrobid 100 mg capsule Take 1 capsule every 12 hours by oral route for 5 days. 2021 active Not Available Not Available Not Avai lable methylpredn isolone 4 mg tablets in a dose pack Take each days pills at once in the morning with food active Not Available Not Available No t Available albuterol sulfate HFA 90 mcg/actuati on aerosol inhaler INHALE 2 PUFFS EVERY 4 HOURS BY INHALATIO N ROUTE. active Not Available Not Available No t Available Bactrim DS 800 mg-160 mg tablet Take 1 tablet every 12 hours by oral route for 7 days. 2021 active Not Available Not Available Not Avai lable Flucelvax Quad 7391-4952 (PF) 60 mcg (15 mcg x 4)/0.5 mL IM syringe TO BE ADMINISTE RED BY PHARMACIS T FOR IMMUNIZAT ION active Not Available Not Available No t Available Vitals Date Recorded Body temperature Oxygen saturation Oxygen saturation in Arterial blood by Pulse oximetry Heart rate Provider Name and Address Organization Details Last Updated DateTime 10/06/2017 97.3 [degF] 96 % 96 % 109 /min [facility] 8 09:27:42 Social History None recorded. Functional Status None recorded. Mental Status None recorded. Family History Nothing Reported. Medical History No medical history recorded. Gynecological HistoryNo gynecological history recorded. Obstetrics History GPAL:G 0 P 0 0 0 0 Immunizations Vaccine Type Date Status Provider Name and Address Organization Details Recorded Time Influenza, split virus, quadrivalent, preservative 04/09/2017 [facility] 10/06/2017 09:24:25 Tdap 09/01/2017 completed Not Available [facility] 04:48:47 COVID-19, mRNA, LNP-S, PF, 30 mcg/0.3 mL dose 09/28/2020 completed Yolanda PatrickPMA) [facility] 09/28/2020 09:35:48 COVID-19, mRNA, LNP-S, PF, 30 mcg/0.3 mL dose 10/19/2020 completed Mavis Banks [facility] 10/19/2020 09:52:55 Past Encounters Encounter ID Performer Location Encounter Start Date Encounter Closed Date Diagnosis/Indication Diagnosis SNOMED-CT Code Diagnosis ICD10 Code [id number] TRAY GARIBAY PMG_PMA_5 [address] [place] [address] 09/01/2017 08:40:50 09/01/2017 10:00:40 Administration of tetanus vaccine 495585068 Z23 Elevated blood-pressure reading without diagnosis of hypertension 618653484 R03.0 Injury of ankle 02908297 6 S99.912A Contusion of left knee 4495195408 1683226 S80.02XA Abrasion o f skin of upper arm 158133774 S40.812A Tachycardia 6732429 R00. 0 [id number] TRAY Land PMG_PMA_F [facility] Office* [address] [place] [address] 10/06/2017 09:09:45 10/06/2017 11:08:20 Low back strain 812258408 S39.012A Morbid obesity 332945305 E66.01 Anxiety 02564513 F41.9 [id number] Yolanda Moran(PMA) PMG_PMA_F [facility] Office* [address] [place] [address] 09/28/2020 09:27:33 10/01/2020 15:00:43 Administration of viral vaccine 62456596 Z23 [id number] Mavis Banks PMG_PMA_F [facility] Office* [address] [place] [address] 10/19/2020 09:37:21 10/19/2020 10:37:27 Administration of SARS-CoV-2 antigen vaccine 671311089 Z23 [id number] June Nevarez NP [facility] [address] [place] [address] 10/11/2021 09:54:01 10/14/2021 22:53:00 COVID-19 140057610 U07.1 Acute urin apple tract infection 243145468 N39.0 [id number] June Nevarez NP [facility] [address] [place] [address] 11/28/2021 13:37:00 11/29/2021 11:42:41 Urinary tract infectious disease 93108089 N39.0 Health Concerns Section Related Observation LastModified by Organization Detai ls LastModified Time None Recorded Concern Status LastModified by Organization Details LastModified Time None Recorded Advance Directives Directive None Recorded Payers Encounter Date Sequence Insurance Name Policy Number Policy Hernandez Covered Member ID Hernandez Member ID Guarantor Name 10/06/2017 1 [employer] 104 Angel Morrison [id number] Angel Morrison 09/28/2020 1 [employer] 104 Angel Morrison [id number] Angel Morrison 10/19/2020 1 [employer] 104 Angel Morrison [id number] Angel Morrison 10/11/2021 1 [employer] 104 Angel Morrison [id number] Angel Morrison 11/28/2021 1 [employer] 104 Angel Morrison [id number] Angel Morrison Notes Date Note Type Note Provider Name and Address Organization Details Recorded Time 10/06/2017 text/html HPI Notes: Ms. Morrison presents today c/o left low back pain. First began 1 month ago after a fall. Had left hip, knee and ankle pain. Seen at urgent care. Normal xrays of the knee and ankle. Took tylenol and advil. Pain resolved. 3-4 days ago, cleaning her house, leaned forward to pick something up felt left sided low back pain again. Pain is now radiating into her buttock and left thigh. No numbness, tingling, swelling. Better after tylenol/advil, worse in the morning. Difficulty walking long distances due to worsening back pain. Normal urination. No incontinence, dysuria or flank pain. Normal BMs Tracey TRAY Mckeon [address], [place], [address], [facility] [employer] [facility] 10/06/2017 09:57:43 10/11/2021 text/html HPI Notes: Virtu al Visit - Urgent Care Reported by patient. Patient identity verified by: Known established patient I shared my identity credentials with the patient: Yes Patient is currently located in the state of: [place] Patient location: Home Physical address & phone number verified (for 911): Yes Provider location: I was located at my residence I educated the patient on the nature of a virtual visit: Yes If the patient had not had this virtual visit, what would they have done? Patient reports they would have waited for first available appointment at doctor's office Emergency plan agreed upon: Yes The patient was seen through synchronous audio and video technology: Yes Any documented vital signs were obtained during the telehealth visit via: Patient report 46 year old female presents with 2 complaints: 1. Positive COVID: tested positive last night with home test Reports: cough, congestion, fatigue Denies: SHOB, CP, NVD 2. UTI: reports frequency, urgency, dysuria for several weeks. Denies nausea, fever, back pain Has not taken any OTC meds for her sympotms June Nevarez NP [address], [address], [facility] 10/11/2021 10:25:55 11/28/2021 text/html HPI Notes: Virtu al Visit - Urgent Care Reported by patient. Patient identity verified by: Known established patient I shared my identity credentials with the patient: Yes Patient is currently located in the state of: [place] Patient location: Home Physical address & phone number verified (for 911): Yes Provider location: I was located at my residence I educated the patient on the nature of a virtual visit: Yes If the patient had not had this virtual visit, what would they have done? Patient reports they would have waited for first available appointment at doctor's office Emergency plan agreed upon: Yes The patient was seen through synchronous audio and video technology: Yes Any documented vital signs were obtained during the telehealth visit via: Patient report Patient presents in clinic with a complaint of urinary pressure and discomfort x one week. She was treated one month ago with Macrobid She reports symptoms began gradually, and she denies any nausea, fever, or new back pain. She has not taken any medication for her symptoms. She denies any vaginal complaints or vaginal discharge. LMP- 3 weeks June Nevarez NP [address], [place], [address], [facility] 11/28/2021 14:31:52 OBGyn Episode No OBEpisode recorded.
[2024-02-25] MEDS: ONDANSETRON 2 MG/ML inj 4 MG IVP (18:34)
[2024-02-25] MEDS: 0.9 % SODIUM CHLORIDE 1000 ml 1,000 ML IV (18:34)
[2024-02-25] MEDS: KETOROLAC 30 MG/ML inj IVP (18:34)
[2024-02-25 18:46] LABS: Appearance Urine Clear (Clear); Bilirubin Urine Negative (Negative); Blood Urine 3+ (Negative); Color Urine Red (Yellow); Glucose Urine 2+ (Negative); Ketones Urine 2+ (Negative); Leukocyte Esterase Urine Negative (Negative); Nitrite Urine Negative (Negative); Protein Urine 1+ (Negative); Urobilinogen Urine 0.2 (0.2-1.0)
[2024-02-25 18:55] VITALS: BP 174/94; PULSE 102; RESP 16; O2SAT 93
[2024-02-25 19:43] LABS: RBC Urine >100 (0-2); WBC Clumps Urine Few; WBC Urine 0-2 (0-5)
[2024-02-25 20:19] VITALS: BP 173/112; PULSE 103; RESP 14; O2SAT 98
== END 2024-02-25 20:21 | disposition home or self-care (01) ==
PROVIDERS: Emergency Provider Emergency Medicine Emergency Medical Services; PCP Family Medicine
DX: R11.10 Vomiting, unspecified (principal); T38.3X1A Poisoning by insulin and oral hypoglycemic [antidiabetic] drugs, accidental (unintentional), initial encounter; D72.819 Decreased white blood cell count, unspecified
CPT/HCPCS: 36415; 80048; 81001; 85025; 96374; 96375; 99283; 99284; J1885; J2405; J7030

== ENCOUNTER 2024-03-29 07:03 | Outpatient (CLI) | payer BC, SELFPAY ==
--- OUTSIDE RECORDS SUMMARY | 2024-03-29 07:07 | XMS_ITS | Data Portability ---
Author Organization [facility] [employer], PMG_PMA_VPMA Office Address 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 Surgeries None recorded. Imaging None recorded. Medication Orders Medrol (Keshav) 4 mg tablets in a dose pack 2017 018 [facility]/Pharmacy #1905, [address] [place], [address], 8 09:46:45 cyclobenza anuja 10 mg tablet 2017 018 [facility] [address] [place], [address], 8 09:46:43 Macrobid 100 mg capsule 2021 [facility] [address] [place], [address], 2 10:25:53 Pyridium 200 mg tablet 2021 [facility]/Pharmacy #1905, [address] [place], [address], 2 10:25:45 albuterol sulfate HFA 90 mcg/actuat ion aerosol inhaler 2021 [facility] [address] [place], [address], 2 10:25:55 benzonatat e 200 mg capsule 2021 [facility]/Pharmacy #1905, [address] [place], [address], 2 10:25:44 Pyridium 200 mg tablet 2021 [facility]/Pharmacy #1905, [address] [place], [address], 14:31:44 Bactrim DS 800 mg-160 mg tablet 2021 022 [facility]armacy #1389, [address] [place], [address], 14:31:44 Patient TargetsNo targets recorded. Patient Instructions Encounter Date Encounter Id Patient Instructions Last Modified By Organization Details Last Modified Time 10/11/2021 [id number] Urinary Tract Infection (UTI) in Women: Care Instructions [email or web address] Not available 10/11/2021 10:25:26 Urinary Tract Infection (UTI) in Women: Care Instructions [email or web address] Not available 10/11/2021 10:25:26 contact precautions* LACHELLE Not available 06/15/2022 05:11:23 airborne precautions* LACHELLE Not available 06/15/2022 05:09:57 droplet precautions* LACHELLE Not available 06/15/2022 05:09:57 10 things to do when you have covid-19 [email or web address] Not available 10/11/2021 10:25:26 Thank you for using [facility]. I am sorry you are not feeling [...] evaluation. [email or web address] Not available 10/11/2021 10:22:58 11/28/2021 [id number] Urinary Tract Infection (UTI) in Women: Care Instructions [email or web address] Not available 11/28/2021 14:31:28 Thank you for using [facility]. I am sorry you are [...] fever, or any other symptoms of concern. [email or web address] Not available 11/28/2021 14:24:52 Reason for Referral Referring Physician: Tracey Mckeon, Internal Medicine, Encounter Date: 10/06/2017 Results Created Date Observation Date Name Description Value Unit Range Abnormal Flag Note LastModifiedBy Organization Detail LastModifiedTime 05/30/20 18 09/01/2017 XR, knee, 3 view No observ ation record ed. [employer] (Virtual Visits Available) [address], [place], [address], 05/31/2018 09:46:39 05/30/20 18 09/01/2017 XR, ankle , 3 or more view No observ ation record ed. [employer] (Virtual Visits Available) [address], [place], [address], 05/31/2018 09:46:38 05/30/20 18 09/01/2017 XR, knee, 3 view No observ ation record ed. [facility] (Virtual Visits Available) [address], [place], [address], 05/31/2018 09:18:58 05/31/20 18 09/01/2017 XR, ankle , 3 or more view No observ ation record ed. [facility] (Virtual Visits Available) [address], [place], [address], 05/31/2018 09:18:58 Result Notes None recorded. Procedures Surgical History None recorded. Imaging Results Imaging Date Name Status LastModified by Organ ation Details LastModified Time 09/01/2017 XR, knee, 3 view completed [employer] (Virtual Visits Available) [address], [place], [address], 05/31/2018 09:46:39 09/01/2017 XR, ankle, 3 or more view completed [employer] (Virtual Visits Available) [address], [place], [address], 05/31/2018 09:46:38 09/01/2017 XR, knee, 3 view completed [employer] (Virtual Visits Available) [address], [place], [address], 05/31/2018 09:18:58 09/01/2017 XR, ankle, 3 or more view completed [employer] (Virtual Visits Available) [address] [place], [address], 05/31/2018 09:18:58 Procedure Notes None recorded. Medical [...] Not Available Not Avai lable Flucelvax Quad 4036-5347 (PF) 60 mcg (15 mcg x 4)/0.5 [...] 96 % 96 % 109 /min [facility] 09:27:42 Social History None recorded. Functional Status None recorded. Mental Status None recorded. Family History Nothing Reported. Medical History No medical history recorded. Gynecological HistoryNo gynecological history recorded. Obstetrics History GPAL:G 0 P 0 0 0 0 Immunizations Vaccine Type Date Status Provider Name and Address Organization Details Recorded Time Influenza, split virus, quadrivalent, preservative 04/09/2017 completed [facility] 10/06/2017 09:24:25 Tdap 09/01/2017 completed Not Available [facility] 04:48:47 COVID-19, mRNA, LNP-S, PF, 30 mcg/0.3 mL dose 09/28/2020 completed Yolanda PatrickPMA) [facility] 09/28/2020 09:35:48 COVID-19, mRNA, LNP-S, PF, 30 mcg/0.3 mL dose 10/19/2020 completed Mavis Banks [facility] 10/19/2020 09:52:55 Past Encounters Encounter ID Performer Location Encounter Start Date Encounter Closed Date Diagnosis/Indication Diagnosis SNOMED-CT Code Diagnosis ICD10 Code [id number] TRAY GARIBAY PMG_PMA_5 [address] [place] [address] 09/01/2017 08:40:50 09/01/2017 10:00:40 Administration of tetanus vaccine 260641702 Z23 Elevated blood-pressure reading without diagnosis of hypertension 682717599 R03.0 Injury of ankle 40267359 6 S99.912A Contusion of left knee 5407750427 6020505 S80.02XA Abrasion o f skin of upper arm 430715672 S40.812A Tachycardia 9006205 R00. 0 [id number] TRAY Land PMG_PMA_F [facility] Office* [address] [place] [address] 10/06/2017 09:09:45 10/06/2017 11:08:20 Low back strain 393994533 S39.012A Morbid obesity 759063931 E66.01 Anxiety 15441447 F41.9 [id number] Yolanda Moran(PMA) PMG_PMA_F [facility] Office* [address] [place] [address] 09/28/2020 09:27:33 10/01/2020 15:00:43 Administration of viral vaccine 90773488 Z23 [id number] Mavis Banks PMG_PMA_F [facility] Office* [address] [place] [address] 10/19/2020 09:37:21 10/19/2020 10:37:27 Administration of SARS-CoV-2 antigen vaccine 908153700 Z23 [id number] June Nevarez NP [facility] [address] [place] [address] 10/11/2021 09:54:01 10/14/2021 22:53:00 COVID-19 310765343 U07.1 Acute urin apple tract infection 372372681 N39.0 [id number] June Nevarez NP [facility] [address] [place] [address] 11/28/2021 13:37:00 11/29/2021 11:42:41 Urinary tract infectious disease 04235969 N39.0 Health Concerns Section Related Observation LastModified by Organization Detai ls LastModified Time None Recorded Concern Status LastModified by Organization Details LastModified Time None Recorded Advance Directives Directive None Recorded Payers Encounter Date Sequence Insurance Name Policy Number Policy Hernandez Covered Member ID Hernandez Member ID Guarantor Name 10/06/2017 1 [employer] [place] 104 Angel Morrison [id number] Angel Morrison 09/28/2020 1 [employer] 104 Angel Morrison [id number] Angel Morrison 10/19/2020 1 [employer] 104 Angel Morrison [id number] Angel Morrison 10/11/2021 1 [employer] [place] 104 Angel Morrison [id number] Angel Morrison 11/28/2021 1 [employer] [place] 104 Angel Morrison [id number] Angel Morrison Notes Date Note Type Note [...] pain. Normal BMs Tracey TRAY Mckeon [address], [place], [address], [facility] 10/06/2017 09:57:43 10/11/2021 text/html HPI Notes: Virtu al Visit - Urgent Care Reported by patient. Patient identity verified by: Known established patient I shared my identity credentials with the patient: Yes Patient is currently located in the state of: [place] Patient location: Home Physical address & phone [...] June Nevarez NP [address], [address], [facility] [employer] 10/11/2021 10:25:55 11/28/2021 text/html HPI Notes: Virtu al Visit - Urgent Care Reported by patient. Patient identity verified by: Known established patient I shared my identity credentials with the patient: Yes Patient is currently located in the state of: [place] Patient location: Home Physical address & phone [...] Nevarez NP [address], [place], [address], [facility] 11/28/2021 14:31:52 OBGyn Episode No OBEpisode recorded.
--- OUTSIDE RECORDS SUMMARY | 2024-03-29 07:07 | XMS_ITS | Clinical Summary ---
Author Organization [facility] Address [place], [place] [address] Care Team Providers Care Porcelain Finisher Name Role Phone Laina Deluca DO Primary Care Provider [phone] Allergies No known active allergies Medications Medication Sig Dispensed Refills Start Date End Date Status FreeStyle Naida 3 Sensor for continuous blood glucose monitor (CGM)Indications: Type 2 diabetes mellitus with hyperglycemia, without long-term current use of insulin (HC) Wear each for 14 days 2 Each 12 12/08/2022 Active albuterol HFA (PRO-AIR; VENTOLIN; PROVENTIL) 90 mcg/actuation inhaler Inhale 2 Puffs by mouth every 4 hours if needed. Active metFORMIN (GLUCOPHAGE) 1,000 mg tabletIndications :Type 2 diabetes mellitus with hyperglycemia, without long-term current use of insulin (HC) Take 1 Tablet (1,000 mg) by mouth two times daily with meals. 180 Tablet 3 06/15/2023 Active lisinopriL (PRINIVIL; ZESTRIL) 20 mg tabletIndications :HTN (hypertension) Take 1 Tablet (20 mg) by mouth once daily. 90 Tablet 3 06/15/2023 Active empagliflozin (JARDIANCE) 10 mg tabletIndications :Type 2 diabetes mellitus with hyperglycemia, without long-term current use of insulin (HC) Take 1 Tablet (10 mg) by mouth once daily. 90 Tablet 3 06/15/2023 Active nystatin powder (MYCOSTATIN) powderIndications :Intertrigo Apply 1 Strip topically to affected area(s) 3 times daily if needed (rash). 60 g 3 08/31/2023 Active Insulin [place], Disposable, (Novofine 32) 32 gauge x 1/4Indications:T ype 2 diabetes mellitus with hyperglycemia, without long-term current use of insulin (HC),Morbid exogenous obesity (HC) For administering insulin at home. Max use once per day 100 Each 09/28/2023 Active sennosides (Senna) 8.6 mg tabletIndications :Chronic constipation TAKE TWO TABLETS BY MOUTH ONCE DAILY NEEDED FOR CONSTIPATION 180 Tablet 1 10/13/2023 Active valACYclovir (VALTREX) 1 gram tablet Take 1 g by mouth two times daily. 10/29/2023 Active semaglutide (OZEMPIC) 1 mg/dose (4 mg/3 mL) subcutaneous penIndications:Ty pe 2 diabetes mellitus with hyperglycemia, without long-term current use of insulin (HC) Inject 1 mg subcutaneous once weekly. 9 mL 3 03/25/2024 Active semaglutide (Ozempic) 2 mg/dose (8 mg/3 mL) penIndications:Ty pe 2 diabetes mellitus with hyperglycemia, without long-term current use of insulin (HC) Inject 0.75 mL (2 mg) subcutaneous once weekly. 9 mL 3 11/20/2023 4 Discontinu ed(*Medica tion adjustment ) semaglutide (OZEMPIC) 1 mg/dose (4 mg/3 mL) penIndications:Ty pe 2 diabetes mellitus with hyperglycemia, without long-term current use of insulin (HC) Inject 1 mg subcutaneous once weekly. 3 mL 12/18/2023 4 Discontinu ed(*Medica tion adjustment ) Active Problems Problem Noted Date Diagnosed Date Type 2 diabetes mellitus wit h hyperglycemia, without long-term current use of insulin 11/21/2022 HTN (hypertension) 11/21/2022 Uterine leiomyoma 11/21/2022 ASCUS of cervix with negative high risk HPV 05/01 Overview (09/04/2023): Note in office visit 04/29/2022: Due for [...] Encounters Date Type Department Care Team Description 03/25/2024 9:20 AM CDT Office Visit [facility] [address] [place] [address] Laina Deluca, Diabetes (Last Diabetic Check 12/04/2023/Last Diabetic Eye Exam: ?/Last Diabetic Education: 12/08/2022) 03/25/2024 9:00 AM CDT Orders Only [facility] [address] [facility] [address] [place] Lab 03/25/2024 Travel 03/13/2024 Nurse Triage [facility] [address] [facility] [address] Laina Deluca DO Arm Injury 02/01/2024 Orders Only [facility] [address] [facility] [place] [address] Lee Joe MD <No scans attached> 01/29/2024 9:45 AM CDT Ancillary Procedure [facility] [address] [facility] [address] 01/29/2024 Travel 01/04/2024 Telephone [facility] [address] [facility] [address] Laina Deluca, Form from Last 3 Months Immunizations Name Administration Dates Next Due COVID-19 VACCINE SPIKEVAX (M ODERNA 50MCG/0.5ML) 12YO+ PFS 04/24/2023 COVID-19 vaccine (Moderna Bhavesh zulma 50mcg/0.25mL) PF, MDV 01/02/2022 COVID-19 vaccine (Pfizer-Bio NTech 30mcg/0.3mL) 12YO+ BIVALENT PF, MDV 04/29/2022 COVID-19 vaccine (Pfizer-BioNTech 30mcg/0.3mL) P F, MDV 10/19/2020,09/28/2020 Influenza Virus, Unspecified 04/09/2017 Influenza, IIV4 04/24/2023,04/29/2022 Pneumococcal Conj 20-valent (Prevnar [...] Sign Reading Time Taken Comments Blood Pressure 131/82 03/25/2024 9:34 AM CDT Pulse 92 03/25/2024 9:34 AM CDT Temperature - - Respiratory Rate - - Oxygen Saturation 98% 03/25/2024 9:34 AM CDT Inhaled Oxygen Concentration - - Weight 163.3 kg (360 lb) 03/25/2024 9:34 AM CDT Height 162.9 cm (5' 4.13) 08/28/2023 10:[address] Body Mass Index 61.54 08/28/2023 10:11 AM CANCER REGISTRY MANAGER Plan of Treatment Upcoming Encounters Date Type Department Care Team (Late st Contact Info) Description 09/23/2024 9:00 AM CDT Orders Only [address] [address] [place] 09/23/2024 9:20 AM CDT Office Visit [facility] [address] [place] [address] Laina Deluca, DO [address] [place] [address] Health Maintenance Due Date Last Done Comments Hepatitis B series for Diabe josesito (1 of 3 - 19+ 3-dose series) 1992 Zoster (shingles) series for age 50+ (1 of 2) 2023 COVID-19 vaccine series (2023- season) 2024 04/24/2023, 04/29/2022, 01/02/2022, Additional history exists Influenza for age 50-64 02/28/2024 04/24/20, 04/29/2022, 04/09/2017 BMI (ht and wt on same day) for age 18+ 08/27/2024 08/28/2023 Depression screening for age 12+ 08/30/2024 08/31/2023, 08/28/2023, 08/28/2023, Additional history exists Mammogram for age 45-75 09/24/2024 09/25/2023 Pap test for age 21-65 08/27/2026 , 08/28/2023, 04/29/2022, Additional history exists Fecal testing sDNA-FIT ([place] guard) for age 45-75 09/27/2026 09/28/2023 Tetanus booster 09/02/2027 09/01/2017 Lipids for age 45-75 03/25/2029 03/25/2024, 05/22/2023, 05/09/2022 Tdap Completed 09/01/2017 HIV for age 15-65 Completed 04/29/2022 Hepatitis C screening for ag e 18-79 Completed 08/28/2023 Pneumococcal series for age 6-64 Completed 08/28/19 24 Procedures Procedure Name Priority Date/Time Associated Diagnosis Comments HEMOGLOBIN A1C MONITORING (POCT) Routine 03/25/2024 9:25 AM CDT Type 2 diabetes mellitus with hyperglycemia, without long-term current use of insulin (HC) LIPID PANEL W REFLEX MEASURED LDL Routine 03/25/2024 9:22 AM CDT Type 2 diabetes mellitus with hyperglycemia, without long-term current use of insulin (HC) BASIC METABOLIC PANEL Routine 03/25/2024 9:22 AM CDT HTN (hypertension) US PELVIS COMPLETE TV Routine 01/29/2024 11:50 AM CDT Ovarian cyst, right SDNA-FIT EXTERNAL (COLOGUARD) Routine 09/28/2023 4:45 AM CDT Screening for colon cancer XR MAMMO JULIUS BILAT SCREEN Routine 09/25/2023 11:17 AM CDT Encounter for screening mammogram for malignant neoplasm of breast ANTI HCV Routine 08/28/2023 11:29 AM CANCER REGISTRY MANAGER Need for hepatitis C screening test HPV HIGH RISK Routine 08/28/2023 10:59 AM CANCER REGISTRY MANAGER Screening for cervical cancer ANTI HIV 1/2 Routine 04/29/2022 4:12 PM CDT Screening examination for STD (sexually transmitted disease) from Last 3 Months or Most Recently Relevant to Health Maintenance Results * HEMOGLOBIN A1C MONITORING (POCT) (03/25/2024 9:25 AM CDT) POC HEMOGLOBIN A1C 5.6 <6.0 % OF TOTAL HGB [facility] Comment: Any point of care results exhibiting inconsistency with the patient's clinical status should be repeated using a different testing method. Blood BLOOD SPECIMEN / Unknown 03/25/2024 9:25 AM CDT 03/25/2024 9:25 AM CDT Laina Deluca DO CHEMISTRY [facility] [address] [place] [address], [facility] [address] [place] [address] * (ABNORMAL) LIPID PANEL W REFLEX MEASURED LDL (03/25/2024 9:22 AM CDT) CHOLESTEROL, TOTAL 195 <200 mg/dL [facility] HDL CHOLESTEROL 61 > OR = 50 mg/dL [facility] TRIGLYCERIDES 187(H) <150 mg/dL [facility] LDL-CHOLESTEROL 104(H) mg/dL (calc) [facility] Comment: Reference range: <100 Desirable range <100 mg/dL for primary prevention; ?? <70 mg/dL for patients with CHD or diabetic patients with > or = 2 CHD risk factors. LDL-C is now calculated using the Jose calculation, which is a validated novel method providing better accuracy than the Friedewald equation in the estimation of LDL-C. [place] CARTER et al. MANDY. 2013;310(19): 0756-5778 (http://education.Obsorb/faq/LPZ277) CHOL/HDLC RATIO 3.2 <5.0 (calc) [facility] NON HDL CHOLESTEROL 134(H) <130 mg/dL (calc) [facility] Comment: For patients with diabetes plus 1 major ASCVD risk factor, treating to a non-HDL-C goal of <100 mg/dL (LDL-C of <70 mg/dL) is considered a therapeutic option. Blood BLOOD SPECIMEN / Unknown 03/25/2024 9:22 AM CDT 03/25/2024 9:24 AM CDT Narrative [facility] - 03/26/2024 5:28 AM CDT PATIENT UNABLE TO VOID; ADVISED TO RETURN FOR COLLECTION. Laina Deluca DO CHEMISTRY [facility] [address] [place] [address], [facility] [address] [place] [address] * (ABNORMAL) BASIC METABOLIC PANEL (03/25/2024 9:22 AM CDT) GLUCOSE 103(H) 65 - 99 mg/dL [facility] Comment: ? Fasting reference interval For someone without known diabetes, a glucose value between 100 and 125 mg/dL is consistent with prediabetes and should be confirmed with a follow-up test. UREA NITROGEN (BUN) 14 7 - 25 mg/dL [facility] CREATININE 0.56 0.50 - 1.03 mg/dL [facility] EGFR 111 > OR = 60 mL/min/1. 73m2 [facility] BUN/CREATININE RATIO SEE NOTE: 6 - 22 (calc) [facility] Comment: ?? Not Reported: BUN and Creatinine are within ?? reference range. ? SODIUM 139 135 - 146 mmol/L [facility] POTASSIUM 4.9 3.5 - 5.3 mmol/L [facility] CHLORIDE 104 98 - 110 mmol/L [facility] CARBON DIOXIDE 25 20 - 32 mmol/L [facility] ELECTROLYTE BALANCE 10 7 - 17 mmol/L (calc) [facility] CALCIUM 9.5 8.6 - 10.4 mg/dL [facility] Blood BLOOD SPECIMEN / Unknown 03/25/2024 9:22 AM CDT 03/25/2024 9:24 AM CDT Narrative [facility] - 03/26/2024 5:28 AM CDT PATIENT UNABLE TO VOID; ADVISED TO RETURN FOR COLLECTION. Laina Deluca DO CHEMISTRY [facility] [address] [place] [address], [facility] [address] [place] [address] * US PELVIS COMPLETE TV (01/29/2024 11:50 [...] 3:05:35 PM (Electronically Signed) Lee Joe MD US * SDNA-FIT EXTERNAL (COLOGUARD) (09/28/2023 4:45 AM CDT) NONINV COLON CA DNA+OCC BLD SCRN STL-IMP Negative Negative 10/04/2023 8:58 AM CDT [facility] (CLIA #:[id number]) Comment: NEGATIVE TEST RESULT. A negative Cologuard [...] Andrade et al, N Engl J Med 2014;370(14):1286- 1297) The normal value (reference range) for this assay is negative. COLOGUARD RE-SCREENING RECOMMENDATION: Periodic colorectal cancer screening is an important part of preventive healthcare for asymptomatic individuals at average risk for colorectal cancer. ??Following a negative Cologuard result, the [place] [employer] and U.S. Multi-Society Task Force screening guidelines recommend a Cologuard re-screening interval of 3 years. References: [place] [employer] Guideline for Colorectal Cancer Screening: https://www.cancer.org/cancer/lfdvn-upwbhk-ojgllt/untmxanax-rkrqntzxh-oexpwel/ac s-rec ommendations.html.; uDarte DK, Rivka GARCIA, Esvin MIRZA, Colorectal Cancer Screening: Recommendations for Physicians and Patients from the U.S. Multi-Society Task Force on Colorectal Cancer Screening , Am J Gastroenterology 2017; 112:3855-4342. TEST DESCRIPTION: Composite algorithmic analysis of stool [...] screened with both Cologuard and colonoscopy. (Quentin Llanes. et al, N Engl J Med 2014;370(14):7985-6572.) Cologuard may produce a false negative or false positive result (no colorectal cancer or precancerous polyp present at colonoscopy follow up). A negative Cologuard test result does not guarantee the absence of CRC or advanced adenoma (pre-cancer). The current Cologuard screening interval is every 3 years. ([place] [employer] and U.S. Multi-Society Task Force). Cologuard performance data in a 10,000 patient pivotal study using colonoscopy as the reference method can be accessed at the following location: www.HeiaHeia.com/results. Additional description of the Cologuard test process, warnings and precautions can be found at www.[employer]ocean[employer] Marketrd.com. Stool specimen (specimen) (Rectum) 09/28/2023 4:45 AM CDT 09/30/2023 1:31 PM CDT Laina Rosanna Shaqra DO URINE [facility] (CLIA #:[id number]) [place] [address], * XR MAMMO JULIUS BILAT SCREEN (09/25/2023 [...] care provider. XR MAMMO JULIUS BILAT SCREEN [[id number]] CLINICAL HISTORY: ??This is an asymptomatic 50 [...] calcifications or areas of architectural distortion. Laina Rosanna Shaqra DO MAMMO * ANTI HCV (08/28/2023 11:29 AM CANCER REGISTRY MANAGER) HEPATITIS C ANTIBODY Non-Reacti ve Non-React tana 08/28/2023 10:26 PM CANCER REGISTRY MANAGER [facility] Comment:Please note, per www .CDC.gov: If a patient is known to be at high risk of HCV infection, or is symptomatic, and the physician's suspicion of HCV infection is high, HCV RNA testing is often employed and is of diagnostic value, even after an initial negative anti-HCV test result. Blood BLOOD SPECIMEN / Unknown Venipuncture / Unknown 08/28/2023 11:29 AM CANCER REGISTRY MANAGER 08/28/2023 11:30 AM CANCER REGISTRY MANAGER Laina Deluca DO SEND OUTS Performing Organization Address [facility] Co de Phone Number [facility] [address] [place] [address], * HPV HIGH RISK (08/28/2023 10:59 AM CANCER REGISTRY MANAGER) TYPE 16 Negative Negative 09/02/2023 5:14 PM CANCER REGISTRY MANAGER [facility] TYPE 18 Negative Negative 09/02/2023 5:14 PM CANCER REGISTRY MANAGER [facility] OTHER HIGH RISK TYPES Negative Negative 09/02/2023 5:14 PM CANCER REGISTRY MANAGER [facility] Other (Cervical) Non-Blood / Unknown 08/28/2023 10:59 AM CANCER REGISTRY MANAGER 08/31/2023 10:41 AM CANCER REGISTRY MANAGER Narrative [facility] - 09/02/2023 5:14 PM CANCER REGISTRY MANAGER HPV types 16, 18, 31, 33, 35, 39, 45, 51, 52, 56, 58, 59, 66 and 68 DNA were undetectable or below the pre-set threshold. Methodology: Julian Polly 4800 HPV Test Laina Deluca DO MICROBIOLOGY Performing Organization Address [facility] Co de Phone Number [facility] [address] [place] [address], * ANTI HIV 1/2 (04/29/2022 4:12 PM CDT) HIV-1/HIV-2 ANTIBODY Non-Reacti ve Non-Reacti ve 04/30/2022 6:25 PM CDT [facility] Comment:HIV-1 p24 and HIV-1/ HIV-2 Ab not detected. Blood BLOOD SPECIMEN / Unknown Venipuncture / Unknown 04/29/2022 4:12 PM CDT 04/29/2022 4:13 PM CDT Laina Deluca DO SEND OUTS [facility] [address] [place] [address], from Last 3 Months or Most Recently Relevant to Health Maintenance Care Teams Porcelain Finisher Relationship Specialty Start Date End Date Laina Deluca DO [address] [place] [address] PCP - General Family Practice 04/29/22
--- NOTE | 2024-03-29 07:15 | MR_ITS ---
[address] [address] Phone:?[phone] Fax:?[phone] Referring Physician Information: Purvi Ardon [address] [facility] [address] Phone:?[phone] Fax:?[phone] Patient:Annabella Morrison D.O.B:?1975 Sex:?Male Phone:?[phone] [facility] MRN:?[id number] Exam Date:?03/29/2024 EXAM: MRI of the RIGHT SHOULDER, without contrast CLINICAL: Right shoulder pain. Evaluate for rotator cuff tear. COMPARISONS: X-rays dated 03/18/2024. TECHNICAL: Multiplanar multisequence MRI of the right shoulder was obtained. SEDATION: None. CONTRAST: None. FINDINGS: Evaluation of the obtained sequences is relatively limited by prominent artifact. Rotator cuff: Supraspinatus/Infraspinatus: Evaluation of the tendons is limited by artifact. There is a evidence of full-thickness tearing of the distal supraspinatus tendon with retraction of torn tendon fibers by approximately 1.5 cm as seen on coronal series 4 images 11-13. Mild tendinosis of the infraspinatus tendon without evidence of significant tendon tear. No convincing evidence of significant fatty atrophy of the muscle bellies as visualized. Teres minor: No tendinosis, tear or atrophy. Subscapularis: Evaluation of the tendon is significantly limited by artifact. There is tendinosis of the distal tendon with question of ill-defined partial tearing involving the distal tendon as visualized. No significant fatty atrophy of the muscle belly. Bursae: Subacromial-subdeltoid: Mild bursal fluid. Subcoracoid: No significant bursal fluid. Coracoacromial arch: Acromion morphology: Type II. No os acromiale. Acromiohumeral space: Moderately narrowed with apparent superior humeral head migration. Coracohumeral space: Within normal limits. Biceps tendon, long head: Evaluation of the tendon is significantly limited by artifact. Suspect ill-defined tendinosis/partial tearing of the intra-articular extending into the imaged proximal extra-articular tendon as visualized. There is increased fluid about the imaged proximal extra-articular tendon. Glenohumeral joint: Relatively small glenohumeral joint effusion is present with synovitis. Articular cartilage: Evaluation is significantly limited by prominent artifact. Capsule: No convincing evidence of capsular thickening or injury. Labrum: Evaluation is significantly limited by artifact. Bones: No suspicious marrow signal alteration, fracture or dislocation as visualized. Acromioclavicular joint: At least moderate degenerative hypertrophic changes are seen to involve the AC joint. No AC joint widening. IMPRESSION: 1. Evaluation of the obtained sequences is relatively limited by prominent artifact. There is however evidence of full-thickness tearing of the distal supraspinatus tendon with retraction of torn tendon fibers by approximately 1.5 cm. Mild tendinosis of the infraspinatus tendon with tendinosis and question of ill-defined partial tearing of the distal subscapularis tendon as visualized. 2. Moderately narrowed acromiohumeral space with apparent superior humeral head migration. 3. Suspect ill-defined tendinosis/partial tearing of the long head biceps tendon as visualized. 4. Moderate degenerative hypertrophic changes involving the AC joint. JCZ Electronically signed on 03/29/2024 10:39:00 AM by Jeremiah Anne D.O.
== END 2024-03-29 07:04 | disposition home or self-care (01) ==
PROVIDERS: PCP Family Medicine; Visit Provider Physician Assistant Surgical
DX: M25.511 Pain in right shoulder (principal); M75.101 Unspecified rotator cuff tear or rupture of right shoulder, not specified as traumatic; S46.211A Strain of muscle, fascia and tendon of other parts of biceps, right arm, initial encounter
CPT/HCPCS: 73221

== ENCOUNTER 2024-07-15 13:00 | Outpatient (RCR) | payer BC, SELFPAY | END 2024-08-30 10:16 | disposition home or self-care (01) | PROVIDERS: PCP Family Medicine; Visit Provider Physician Assistant Surgical | DX: M75.101 Unspecified rotator cuff tear or rupture of right shoulder, not specified as traumatic (principal); M12.811 Other specific arthropathies, not elsewhere classified, right shoulder; M25.511 Pain in right shoulder; M79.601 Pain in right arm; Z51.89 Encounter for other specified aftercare | CPT/HCPCS: 97110; 97161; 97535 ==

== ENCOUNTER 2025-05-16 03:57 | Outpatient (CLI) | payer BC, SELFPAY | END 2025-05-16 03:58 | disposition home or self-care (01) | LOC: AMB 05-18 19:37 | PROVIDERS: PCP Family Medicine; Visit Provider Family Medicine | DX: R10.9 Unspecified abdominal pain (principal) | CPT/HCPCS: A0425; A0429 ==

== ENCOUNTER 2025-05-16 04:08 | Emergency (ER) | payer BC, SELFPAY ==
[2025-05-16] VITALS (13 sets, daily range): BP systolic 95–151; BP diastolic 59–84; PULSE 84–101; RESP 16–18; TEMP 36.1; O2SAT 87–99; BMI 61.6
--- NOTE | 2025-05-16 04:32 | CRLHL7_ITS ---
For Patients: As a result of the Century Cures Act, medical imaging exams and procedure reports are released immediately into your electronic medical record. You may view this report before your referring provider. If you have questions, please contact your health care provider. INDICATION: Abdominal pain, hernia TECHNIQUE: CT abdomen and pelvis acquired with 98 cc Isovue 370 IV contrast. COMPARISON: CT abdomen and 10/14/2022. FINDINGS: Lower chest: Unremarkable. Liver: Unremarkable. Gallbladder and bile ducts: Unremarkable. No stones or inflammation. No biliary dilatation. Pancreas: Unremarkable. Spleen: Unremarkable. Adrenal glands: Unremarkable. No nodules. Kidneys: Left renal cysts. No hydronephrosis or nephrolithiasis. GI tract: No definite obstruction. Moderate ventral hernia immediately inferior to the ventral hernia mesh contains ileal bowel loops with fecalization of bowel contents and trace surrounding fluid. The neck hernia 4.6 centimeters. Normal appendix. Vasculature: Abdominal aorta is normal in caliber. Mesenteric arteries are patent. Lymph nodes: No lymphadenopathy. Peritoneum/Abdominal Wall: Moderate ventral hernia as described above. Ventral hernia mesh. Pelvis: Enlarged uterus with prominent and displaced endometrium, likely related to underlying fibroid. The endometrium appears thickened measuring 2 centimeters. Redemonstration of the cystic lesion anterior to the uterus, possibly in the left ovary, which may represent 2 cystic lesions versus bilobed cyst measuring 4.3 x 7.9 x 6.2 (2/129, 5/107), previously 4.8 x 8.5 x 7.0 centimeters. Right adnexal cystic lesion measuring 4.5 x 3.3 x 4.4 (2/133, 5/133), previously 5.2 x 2.6 x 4 centimeters. Bones: Moderate degenerative disease of the spine. IMPRESSION: Moderate ventral hernia immediately inferior to the ventral hernia mesh contains ileal bowel loops with areas of fecalization, which is concerning for slow transit or developing small bowel obstruction. There is also trace fluid within the hernia sac. Correlate with physical exam for signs of incarceration. Enlarged uterus with prominent endometrium. Consider further evaluation with nonemergent pelvic ultrasound, particularly if the patient is postmenopausal. Redemonstration of cystic lesion surrounding the uterus, likely within the ovaries, which are similar to slightly decreased compared to prior. These can be evaluated on the above suggested pelvic ultrasound. Please note that all CT scans at this facility use dose modulation, iterative reconstruction, and/or weight-based dosing when appropriate to reduce radiation dose to as low as reasonably achievable. Dictated by Kaley Gage MD @ 05/16/2025 6:55:31 AM (Electronically Signed)
--- NOTE | 2025-05-16 04:40 | ED.GENADULT ---
HPI - General Adult General Chief complaint: Abdominal Pain Stated complaint: abdominal pain Time Seen by Provider: 05/16/25 04:14 Source: patient and EMS Mode of arrival: EMS History of Present Illness HPI narrative: 50-year-old female reports 8 hours of abdominal pain in the lower abdominal/periumbilical area. No trauma or injury does have a known history of umbilical hernia. Review of the record shows that she had a ventral hernia through the umbilicus surgically repaired 2 years ago, incarcerated hernia at that time. Notes reviewed, she confirms the details. She has not had any issues until her primary care provider pointed out return of umbilical hernia a few months ago on routine exam. Patient had been asymptomatic for this until tonight. Patient initially felt achiness in the lower abdomen that gradually worsened. She had a bowel movement about 2 hours prior to arrival, nonbloody, otherwise unremarkable, thought this would help but pain continues to worsen. She had an episode of vomiting shortly after arrival. She called 911 for assistance, no treatments were administered prior to arrival. She is declining pain medicine but is screaming in pain. She says that she is worried about addiction. Denies that she has a history of addiction but has a family history of this. Does not take long-term narcotics. She screaming in pain and does not answer my question about chronic medical problems but I can see from her records that she has a notable history of hypertension, diabetes. I reviewed the home medications that are listed. Only prior abdominal surgery is the prior umbilical hernia repair. No recent bloody stools, no hematemesis. Reported no known drug allergies. Previous records indicate that she is a nonsmoker. She does deny a history of bleeding or blood clotting disorders for me as well. ROS is notable for the abdominal symptoms, otherwise she denies times 12 systems. Related Data Home Medications ?Medication ?Instructions ?Recorded ?Confirmed biotin 1 mg capsule 1 mg PO QDAY 03/14/24 05/16/25 empagliflozin 10 mg tablet 10 mg PO DAILY 03/14/24 05/16/25 (Jardiance) glucosamine 750 mg-chondroit 100 tab PO 03/14/24 04/01/24 mg-msm-D3 25 yfd-fwdl-trt bor tablet ketorolac 10 mg tablet mg PO 03/14/24 04/01/24 lisinopril 20 mg tablet 20 mg PO DAILY 03/14/24 04/01/24 metformin 1,000 mg tablet 1,000 mg PO BID 03/14/24 04/01/24 mkyzwsos-ehol-bucp 8 mg-folic 400 1 tab PO QDAY 03/14/24 04/01/24 mcg-K 50 mcg-lutein 300 mcg tablet (Centrum Silver Women) nystatin 100,000 unit/gram topical 1 applic topical BID-TID 03/14/24 04/01/24 powder ondansetron 4 mg disintegrating mg PO 03/14/24 04/01/24 tablet semaglutide 2 mg/dose (8 mg/3 mL) mg subcut 03/14/24 04/01/24 subcutaneous pen injector (Ozempic) zinc citrate, zinc oxide 50 mg mg PO 03/14/24 04/01/24 tablet szrzf-3y-nyj-epa-fish oil-vit D3 cap PO 03/18/24 04/01/24 350 mg-400 mg-1,000 unit capsule Previous Rx's ?Medication ?Instructions ?Recorded sennosides 8.6 mg capsule (senna) 8.6 mg PO DAILY PRN constipation 10/14/22 #90 caps Allergies Allergy/AdvReac Type Severity Reaction Status Date / Time No Known Drug Allergies Allergy Verified 03/18/24 09:40 [facility] Medical History Diabetes ?E11.9 - Type 2 diabetes mellitus without complications (ICD-10) Hypertension ?I10 - Essential (primary) hypertension (ICD-10) Surgical History H/O wisdom tooth extraction ?K08.409 - Partial loss of teeth, unspecified cause, unspecified class (ICD-10) Partial small bowel obstruction (10/13/22) ?K56.600 - Partial intestinal obstruction, unspecified as to cause (ICD-10) History of ventral hernia repair (10/14/22) ?Z98.890 - Other specified postprocedural states (ICD-10) ?Z87.19 - Personal history of other diseases of the digestive system (ICD-10) Family History Mother Drug dependence Esophageal cancer Skin cancer High blood pressure Father Drug dependence Stroke Social History Smoking Status: Never smoker Do you use any of these nicotine containing products: None How often do you have a drink containing alcohol: monthly or less AUDIT-C Alcohol total score: 1 Non-prescribed substance use: denies use Exam Const: Vital Signs, click to edit/add: Vital Signs - 24 hr 05/16/25 04:17 05/16/25 05:21 05/16/25 05:21 Temperature 97 F L Pulse Rate Pulse Rate [Pulse Oximeter] 101 H 86 Respiratory Rate 16 16 Blood Pressure Blood Pressure [Ri ght Upper Arm] 151/84 H Pulse Oximetry 96 87 L 93 Oxygen Delivery Me thod Room Air Room Air Nasal Cannula Oxygen Flow Rate Fraction of Inspir ed Oxygen 2 05/16/25 05:23 05/16/25 05:24 05/16/25 05:30 Temperature Pulse Rate 86 84 Pulse Rate [Pulse Oximeter] Respiratory Rate Blood Pressure Blood Pressure [Ri ght Upper Arm] Pulse Oximetry 96 96 99 Oxygen Delivery Me thod Nasal Cannula Oxygen Flow Rate 2 Fraction of Inspir ed Oxygen 05/16/25 05:40 05/16/25 06:33 05/16/25 06:34 Temperature Pulse Rate 91 Pulse Rate [Pulse Oximeter] 91 Respiratory Rate 18 16 Blood Pressure 136/70 Blood Pressure [Ri ght Upper Arm] 136/70 Pulse Oximetry 95 96 96 Oxygen Delivery Me thod Room Air Room Air Oxygen Flow Rate Fraction of Inspir ed Oxygen 05/16/25 06:35 05/16/25 07:25 05/16/25 07:26 Temperature Pulse Rate 89 91 Pulse Rate [Pulse Oximeter] Respiratory Rate 18 Blood Pressure 142/80 H Blood Pressure [Ri ght Upper Arm] Pulse Oximetry 98 98 Oxygen Delivery Me thod Oxygen Flow Rate Fraction of Inspir ed Oxygen 05/16/25 08:18 05/16/25 08:19 Temperature Pulse Rate 93 94 Pulse Rate [Pulse Oximeter] Respiratory Rate 16 Blood Pressure 95/59 L Blood Pressure [Ri ght Upper Arm] Pulse Oximetry 96 96 Oxygen Delivery Me thod Oxygen Flow Rate Fraction of Inspir ed Oxygen Documenting provider has reviewed patient's vital signs: yes Common normals: alert Other: Distress due to pain, difficult to answer my questions. Does appear well nourished and well hydrated, nontoxic, non intoxicated. HENMT: Common normals: normocephalic, moist oral mucous membranes and oropharynx normal Head and scalp: normocephalic Face and sinus: normal facial exam Mouth: oral and palatal mucosa normal Throat: posterior oropharynx normal Eye: Common normals: conjunctivae normal General eye: normal appearance of both eyes Conjunctiva: conjunctiva(e) normal Neck & C-Spine: Common normals: full ROM General: normal visual inspection Resp: Common normals: normal respiratory effort and no use of accessory muscles Effort & inspection: able to speak in complete sentences Cardio: Common normals: regular rate, regular rhythm, S1 normal heart sound, S2 normal heart sound and no murmurs Rate: regular rate Rhythm: regular rhythm Heart sounds: S1 normal and S2 normal GI: Other: Abdomen is very obese, difficult to palpate any of the organs but she does have a 4-5 cm umbilical area hernia with firm center, exquisitely tender. I attempt to reduce this at the bedside, she does not tolerate this well. Will give pain medicine and re-attempt. I can't hear bowel sounds well over her howling, understandable. Extremity: Common normals: normal to inspection and normal capillary refill Neuro: Common normals: moves all extremities Sensorium/orientation: alert Speech: speech normal Psych: Appearance: grossly normal Attitude: engaged Activity/motor behavior: appropriate eye contact Insight: insight good Judgement: judgment good Skin: Common normals: no rashes or lesions noted General skin exam: no rashes or lesions noted Course Course ED Course: 50-year-old female with 8 hours of abdominal pain, worsening etiology is seemingly to be from an obvious incarcerated umbilical hernia. Attempt to reduce at the bedside initially unsuccessful. Patient hesitant to accept pain medicine but when I weighed the risks and benefits for her, she does ultimately accept this. Will give Dilaudid 0.5 mg IV x1. Will obtain labs for typical intra-abdominal workup. As soon as the IV pain medicine is given I am going to try again to reduce this umbilical hernia. Will plan for CT scan. If I am unable to reduce the hernia will call surgery right away for stat surgical consult. Update: We had a lot of difficulty getting the IV but were ultimately able to place it. Right after the medicine was given, elated circulate for about 2 minutes. Patient did have some temporary improvement in her pain, we got her moved back to the bed which required 2 people and I did attempt multiple times to reduce the hernia again with no success. I immediately called a general surgeon and let them know about the incarcerated hernia. They are going to talk to Anesthesia about the risk factors for this case with her very elevated BMI, prior failed surgical repair, risk factors. She will call me back, hopefully we have the CT then. Patient with stable vitals but is now diaphoretic. Awaiting remainder of labs. Second update: CT let me know that her machine was in the middle of an update, will be an additional [address] Update: Our surgeon was able to see the CT images through [facility] prior to them being loaded through our EMR, agrees that there is incarcerated bowel and omentum, recommends transfer. Does not think this surgery can safely be done in our facility. We do not have big enough mesh to meet her needs and with prior failure and severely elevated BMI, risk of complications as high. Recommended transfer to [facility] due to the fact that they have a specialized program for treating these types of complicated abdominal wall defects. I spoke with Radiology, am having the images pushed up to [place]. I called for transfer. I did specifically ask for an ED to ED transfer due to the patient having what is seeming like necrotic bowel. Transfer team has recommended I speak with General surgery 1st. I let them know that I will do so at their request but patient needs to urgently go to an operating room. Am awaiting callback from general surgery. Will start 1 L of LR. 0530 Update: I discussed the phone with Dr. Tineo on-call for General surgery. She is understanding of our concerns for the incarcerated bowel and has recommended transfer. There does not appear to be a bed delay, therefore she is recommending transfer directly to [facility]. Images have not yet arrived, they will update me if there are changes in this plan. I am now waiting call back from the hospitalist.05:55. We continue to have delays with the removing of the generator that keeps taking down the CT scan. Our echo tech is working diligently to correct this. At this time, patient has still not completed her CT scan. I have now spoken with hospitalist, call ended at 6:15 a.m.. Final update. I was called into a cardiac arrest, hence the delay and updates but we continued to await nursing acceptance until after 8:00 a.m.. NG tube was placed, this did help with the vomiting and nausea. Patient will transfer ALS ground to [facility] for surgical consult and reduction of incarcerated bowel. Vital Signs Vital signs: Initial Vital Signs Temperature 97 F L 05/16/25 04:17 Temperature Source Temporal Artery Scan 05/16/25 04:17 Pulse Rate 101 H 05/16/25 04:17 Respiratory Rate 16 05/16/25 04:17 Blood Pressure 151/84 H 05/16/25 04:17 Blood Pressure Mean 106 H 05/16/25 04:17 Blood Pressure Position Semi-Fowlers 05/16/25 04:17 Pulse Oximetry 96 05/16/25 04:17 Oxygen Delivery Method Room Air 05/16/25 04:17 Vital Signs Temperature 97 F L 05/16/25 04:17 Pulse Rate 101 H 05/16/25 04:17 Respiratory Rate 16 05/16/25 04:17 Blood Pressure 151/84 H 05/16/25 04:17 Pulse Oximetry 96 05/16/25 04:17 Oxygen Delivery Method Room Air 05/16/25 04:17 Temperature 97 F L 05/16/25 04:17 Pulse Rate 94 05/16/25 08:19 Respiratory Rate 16 05/16/25 08:19 Blood Pressure 95/59 L 05/16/25 08:19 Pulse Oximetry 96 05/16/25 08:19 Oxygen Delivery Method Room Air 05/16/25 06:33 Oxygen Flow Rate 2 05/16/25 05:23 Fraction of Inspired Oxygen 2 05/16/25 05:21 Medications Administered Medications: Discontinued Medications Generic Name Dose Route Start Last Admin Trade Name Freq PRN Reason Stop Dose Admin Hydromorphone HCl 0.5 mg 05/16/25 04:32 05/16/25 04:52 Hydromorphone 0.5 Mg/0.5 Ml Inj IVP 05/16/25 04:33 0.5 mg ONCE ONE Administration Hydromorphone HCl 0.5 mg 05/16/25 06:26 05/16/25 06:38 Hydromorphone 0.5 Mg/0.5 Ml Inj IVP 0.5 mg Q1H PRN Administration Lactated Ringer's 1,000 mls @ 1,000 mls/hr 05/16/25 05:23 05/16/25 07:16 Lactated Ringers 1000 Ml IV 05/16/25 06:22 Infused .Q1H ONE Infusion Ondansetron HCl 4 mg 05/16/25 04:32 05/16/25 04:52 Ondansetron 2 Mg/Ml Inj IVP 05/16/25 04:33 4 mg ONCE ONE Administration Medical Decision Making Lab Data Lab results reviewed: Yes I reviewed the patient's lab results Lab results narrative: Mild leukocytosis. Elevation in lactate is worrisome for ischemic bowel. Urinalysis does have some signs of infection, will culture. Mild elevation in CRP. Electrolytes and liver function look good. Labs: Lab Results 05/16/25 05/16/25 05/16/25 Range/Units 04:30 04:32 04:50 WBC 13.65 H (4.50-11.00) K/uL RBC 4.89 (4.00-5.20) m/uL Hgb 13.9 (12.0-16.0) gm/dL Hct 43.5 (33.0-51.0) % MCV 89 (80-100) fL MCH 28 (26-34) pg MCHC 32 (32-36) gm/dL RDW Coeff of Aislinn 13.0 (11.5-15.5) % Plt Count 344 (140-440) K/uL Neut % (Auto) 76.5 H (42.0-72.0) % Lymph % (Auto) 16.8 L (20-44) % [place] % (Auto) 4.1 (0.0-11.0) % Eos % (Auto) 1.9 (0.0-7.0) % Baso % (Auto) 0.4 (0.0-3.0) % Neut # (Auto) 10.40 H (1.7-7.0) K/uL Lymph # (Auto) 2.30 (0.90-2.90) K/uL [place] # (Auto) 0.60 (0.00-0.90) K/UL Eos # (Auto) 0.30 (0.00-0.50) K/uL Baso # (Auto) 0.10 (0.00-0.30) K/uL Abs Immat Gran (auto) 0.00 (0.00-0.30) K/uL Imm/Tot Granulo (auto) 0.3 % Sodium 137 (135-149) mmol/L Potassium 4.4 (3.6-5.1) mmol/L Chloride 99 (96-114) mmol/L Carbon Dioxide 23 (20-32) mmol/L Anion Gap 15 (7-15) mEq/L BUN 15 (7-30) mg/dL Creatinine 0.6 (0.5-1.5) mg/dL Estimated Creat Clear 98.69 Estimated GFR 108 ml/min Glucose 188 H (60-115) mg/dL Lactate 2.9 H (0.5-1.9) mmol/L Calcium 9.6 (8.4-10.6) mg/dL Total Bilirubin 0.7 (0.1-1.5) mg/dL AST 24 (12-35) U/L ALT 23 (4-35) U/L Alkaline Phosphatase 108 (40-150) U/L C-Reactive Protein 1.4 H (0.5-1.0) mg/dL Total Protein 7.7 (6.0-8.3) g/dL Albumin 4.5 (3.3-5.0) g/dL Lipase 121 (23-300) U/L Urine Color Yellow (Yellow) Urine Appearance Cloudy A (Clear) Urine pH 6.0 (5.0-8.5) Ur Specific [place] 1.015 (1.000-1.030) Urine Protein 2+ A (Negative) Urine Glucose (UA) 2+ A (Negative) Urine Ketones Negative (Negative) Urine Blood 3+ A (Negative) Urine Nitrite Positive A (Negative) Urine Bilirubin 1+ A (Negative) Urine Urobilinogen 0.2 (0.2-1.0) Ur Leukocyte Esterase Trace A (Negative) Urine RBC 10-25 A (0-2) Urine WBC 10-25 A (0-5) Ur Squamous Epith Cells Few (None-Few) Amorphous Sediment Few A (None) Urine Bacteria Moderate A (None) Urine HCG, Qual Negative (Negative) POC Creatinine 0.6 (0.6-1.3) mg/dl 05/16/25 Range/Units 07:20 WBC (4.50-11.00) K/uL RBC (4.00-5.20) m/uL Hgb (12.0-16.0) gm/dL Hct (33.0-51.0) % MCV (80-100) fL MCH (26-34) pg MCHC (32-36) gm/dL RDW Coeff of Aislinn (11.5-15.5) % Plt Count (140-440) K/uL Neut % (Auto) (42.0-72.0) % Lymph % (Auto) (20-44) % [place] % (Auto) (0.0-11.0) % Eos % (Auto) (0.0-7.0) % Baso % (Auto) (0.0-3.0) % Neut # (Auto) (1.7-7.0) K/uL Lymph # (Auto) (0.90-2.90) K/uL [place] # (Auto) (0.00-0.90) K/UL Eos # (Auto) (0.00-0.50) K/uL Baso # (Auto) (0.00-0.30) K/uL Abs Immat Gran (auto) (0.00-0.30) K/uL Imm/Tot Granulo (auto) % Sodium (135-149) mmol/L Potassium (3.6-5.1) mmol/L Chloride (96-114) mmol/L Carbon Dioxide (20-32) mmol/L Anion Gap (7-15) mEq/L BUN (7-30) mg/dL Creatinine (0.5-1.5) mg/dL Estimated Creat Clear Estimated GFR ml/min Glucose (60-115) mg/dL Lactate 2.0 H (0.5-1.9) mmol/L Calcium (8.4-10.6) mg/dL Total Bilirubin (0.1-1.5) mg/dL AST (12-35) U/L ALT (4-35) U/L Alkaline Phosphatase (40-150) U/L C-Reactive Protein (0.5-1.0) mg/dL Total Protein (6.0-8.3) g/dL Albumin (3.3-5.0) g/dL Lipase (23-300) U/L Urine Color (Yellow) Urine Appearance (Clear) Urine pH (5.0-8.5) Ur Specific [place] (1.000-1.030) Urine Protein (Negative) Urine Glucose (UA) (Negative) Urine Ketones (Negative) Urine Blood (Negative) Urine Nitrite (Negative) Urine Bilirubin (Negative) Urine Urobilinogen (0.2-1.0) Ur Leukocyte Esterase (Negative) Urine RBC (0-2) Urine WBC (0-5) Ur Squamous Epith Cells (None-Few) Amorphous Sediment (None) Urine Bacteria (None) Urine HCG, Qual (Negative) POC Creatinine (0.6-1.3) mg/dl Imaging Data CT scan - abdomen: Attestation: I have reviewed the pertinent imaging results. My impression: Incarcerated appearing small bowel in umbilical hernia. Radiologist's impression: IMPRESSION: Moderate ventral hernia immediately inferior to the ventral hernia mesh contains ileal bowel loops with areas of fecalization, which is concerning for slow transit or developing small bowel obstruction. There is also trace fluid within the hernia sac. Correlate with physical exam for signs of incarceration. Enlarged uterus with prominent endometrium. Consider further evaluation with nonemergent pelvic ultrasound, particularly if the patient is postmenopausal. Redemonstration of cystic lesion surrounding the uterus, likely within the ovaries, which are similar to slightly decreased compared to prior. These can be evaluated on the above suggested pelvic ultrasound. Please note that all CT scans at this facility use dose modulation, iterative reconstruction, and/or weight-based dosing when appropriate to reduce radiation dose to as low as reasonably achievable. Dictated by Kaley Gage MD @ 05/16/2025 6:55:31 AM Discharge Plan Discharge Clinical Impression: Incarcerated ventral hernia Patient Disposition: Xfer [facility] Discharge Location: [facility] Prescriptions: No Action ondansetron 4 mg tablet,disintegrating PO ketorolac 10 mg tablet PO metformin 1,000 mg tablet 1,000 mg PO BID Jardiance 10 mg tablet 10 mg PO DAILY lisinopril 20 mg tablet 20 mg PO DAILY Ozempic 2 mg/dose (8 mg/3 mL) pen injector subcut nystatin 100,000 unit/gram powder 1 applic topical BID-TID Centrum Silver Women 8 mg iron-400 mcg-50 mcg tablet 1 tab PO QDAY biotin 1 mg capsule 1 mg PO QDAY zinc citrate, zinc oxide 50 mg tablet PO kqmt-cloum-hop-D3-hyal-xiomy bor 750 mg-100 mg- 25 mcg tablet PO eyvxn-1k-nhc-epa-fish oil-D3 350 mg-400 mg- 1,000 unit capsule PO senna 8.6 mg capsule 8.6 mg PO DAILY PRN (Reason: constipation) Qty: 90 0RF Stand Alone Forms: MyHealth Info Instructions
[2025-05-16 04:46] LABS: Appearance Urine Cloudy (Clear)
[2025-05-16 04:51] LABS: Ur HCG Qualitative* Negative (Negative)
[2025-05-16] MEDS: ONDANSETRON 2 MG/ML inj 4 MG IVP (04:52)
[2025-05-16 05:03] LABS: Hematocrit* 43.5 % (33.0-51.0); Hemoglobin* 13.9 gm/dL (12.0-16.0); Immature Granulocytes Abs Auto 0.00 K/uL (0.00-0.30); Immature Granulocytes Pct Auto 0.3 %; Lymphocytes Absolute Auto 2.30 K/uL (0.90-2.90); Mean Corpuscular HGB Conc 32 gm/dL (32-36); Mean Corpuscular Hemoglobin 28 pg (26-34); Mean Corpuscular Volume 89 fL (80-100); RDW Coefficient of Variation % 13.0 % (11.5-15.5); Red Blood Count* 4.89 m/uL (4.00-5.20); Slide Review Reflex No; White Blood Count* 13.65 K/uL (4.50-11.00)
[2025-05-16 05:10] LABS: Lactate Sepsis w/Reflex* 2.9 mmol/L (0.5-1.9)
[2025-05-16 05:13] LABS: Creatinine, Point-of-Care* 0.6 mg/dl (0.6-1.3)
[2025-05-16 05:21] LABS: Albumin* 4.5 g/dL (3.3-5.0); Chloride* 99 mmol/L (96-114)
[2025-05-16 05:22] LABS: Potassium* 4.4 mmol/L (3.6-5.1); Sodium* 137 mmol/L (135-149)
[2025-05-16 05:24] LABS: Alanine Aminotransferase* 23 U/L (4-35); Alkaline Phosphatase* 108 U/L (40-150); Anion Gap 15 mEq/L (7-15); Aspartate Amino Transferase* 24 U/L (12-35); Bilirubin Total* 0.7 mg/dL (0.1-1.5); Blood Urea Nitrogen* 15 mg/dL (7-30); Carbon Dioxide* 23 mmol/L (20-32); Creatinine* 0.6 mg/dL (0.5-1.5); Est. Creatinine Clearance* 98.69; Estimated Glomerular Filt Rate 108 ml/min; Total Protein* 7.7 g/dL (6.0-8.3)
[2025-05-16 05:25] LABS: Calcium* 9.6 mg/dL (8.4-10.6); Glucose* 188 mg/dL (60-115)
[2025-05-16] MEDS: LACTATED RINGERS 1000 ML 1,000 ML IV (06:36)
--- NOTE | 2025-05-16 06:53 | CRLHL7_ITS ---
For Patients: As a result of the Century Cures Act, medical imaging exams and procedure reports are released immediately into your electronic medical record. You may view this report before your referring provider. If you have questions, please contact your health care provider. Indication: Confirm nasogastric tube placement Technique: Single view portable abdomen Comparison: None Findings: As below Impression: Technical limitations due to beam attenuation factors. Nasogastric tube appears to end in the stomach. Dictated by Alireza Manuel MD @ 05/16/2025 7:20:39 AM (Electronically Signed)
[2025-05-16 07:25] LABS: Lactate Sepsis 2 Hour 2.0 mmol/L (0.5-1.9)
--- NOTE | 2025-05-18 11:46 | ED.GENADULT ---
HPI - General Adult General Chief complaint: Abdominal Pain Stated complaint: abdominal pain Time Seen by Provider: 05/16/25 04:14 Source: patient and EMS Mode of arrival: EMS History of Present Illness HPI narrative: This is an addendum to Dr. Guevara see ER note from this patient from 05/16. Patient had been seen in the ER other the other night and had evidence for an incarcerated umbilical hernia. Given operative complexity she was transferred [facility] for surgery. Urinalysis was abnormal in the ER and urine culture is growing [phone] colony-forming units per meal of E coli. It is resistant to Bactrim and intermediate to ampicillin but otherwise sensitive to antibiotics. We faxed a copy of this patient's urine culture results [facility] and the informed us of the patient already been discharged. I contact the patient on her home phone [phone]. [phone] on 05/18 to inform her that she probably does have urinary infection and make sure she is on appropriate antibiotics. She had did not answer. I left a voicemail for her to call back to the [facility]. If she calls back and she is not already on antibiotics I would recommend treatment with a course of cephalexin 500 mg p.o. b.i.d. for 5 days. Clinical impression 1. UTI Related Data Home Medications ?Medication ?Instructions ?Recorded ?Confirmed biotin 1 mg capsule 1 mg PO QDAY 03/14/24 05/16/25 empagliflozin 10 mg tablet 10 mg PO DAILY 03/14/24 05/16/25 (Jardiance) glucosamine 750 mg-chondroit 100 tab PO 03/14/24 04/01/24 mg-msm-D3 25 zjo-qkbf-swm bor tablet ketorolac 10 mg tablet mg PO 03/14/24 04/01/24 lisinopril 20 mg tablet 20 mg PO DAILY 03/14/24 04/01/24 metformin 1,000 mg tablet 1,000 mg PO BID 03/14/24 04/01/24 mvlemmsr-ubub-pnjn 8 mg-folic 400 1 tab PO QDAY 03/14/24 04/01/24 mcg-K 50 mcg-lutein 300 mcg tablet (Centrum Silver Women) nystatin 100,000 unit/gram topical 1 applic topical BID-TID 03/14/24 04/01/24 powder ondansetron 4 mg disintegrating mg PO 03/14/24 04/01/24 tablet semaglutide 2 mg/dose (8 mg/3 mL) mg subcut 03/14/24 04/01/24 subcutaneous pen injector (Ozempic) zinc citrate, zinc oxide 50 mg mg PO 03/14/24 04/01/24 tablet geyjd-0b-cdd-epa-fish oil-vit D3 cap PO 03/18/24 04/01/24 350 mg-400 mg-1,000 unit capsule Previous Rx's ?Medication ?Instructions ?Recorded sennosides 8.6 mg capsule (senna) 8.6 mg PO DAILY PRN constipation 10/14/22 #90 caps Allergies Allergy/AdvReac Type Severity Reaction Status Date / Time No Known Drug Allergies Allergy Verified 03/18/24 09:40 [facility] Medical History Diabetes ?E11.9 - Type 2 diabetes mellitus without complications (ICD-10) Hypertension ?I10 - Essential (primary) hypertension (ICD-10) Surgical History H/O wisdom tooth extraction ?K08.409 - Partial loss of teeth, unspecified cause, unspecified class (ICD-10) Partial small bowel obstruction (10/13/22) ?K56.600 - Partial intestinal obstruction, unspecified as to cause (ICD-10) History of ventral hernia repair (10/14/22) ?Z98.890 - Other specified postprocedural states (ICD-10) ?Z87.19 - Personal history of other diseases of the digestive system (ICD-10) Family History Mother Drug dependence Esophageal cancer Skin cancer High blood pressure Father Drug dependence Stroke Social History Smoking Status: Never smoker Do you use any of these nicotine containing products: None How often do you have a drink containing alcohol: monthly or less AUDIT-C Alcohol total score: 1 Non-prescribed substance use: denies use Course Vital Signs Vital signs: Initial Vital Signs Temperature 97 F L 05/16/25 04:17 Temperature Source Temporal Artery Scan 05/16/25 04:17 Pulse Rate 101 H 11/18/25 04:17 Respiratory Rate 16 05/16/25 04:17 Blood Pressure 151/84 H 05/16/25 04:17 Blood Pressure Mean 106 H 05/16/25 04:17 Blood Pressure Position Semi-Fowlers 05/16/25 04:17 Pulse Oximetry 96 05/16/25 04:17 Oxygen Delivery Method Room Air 05/16/25 04:17 Vital Signs Temperature 97 F L 05/16/25 04:17 Pulse Rate 101 H 05/16/25 04:17 Respiratory Rate 16 05/16/25 04:17 Blood Pressure 151/84 H 05/16/25 04:17 Pulse Oximetry 96 05/16/25 04:17 Oxygen Delivery Method Room Air 05/16/25 04:17 Temperature 97 F L 05/16/25 04:17 Pulse Rate 94 05/16/25 08:19 Respiratory Rate 16 05/16/25 08:19 Blood Pressure 95/59 L 05/16/25 08:19 Pulse Oximetry 96 05/16/25 08:19 Oxygen Delivery Method Room Air 05/16/25 06:33 Oxygen Flow Rate 2 05/16/25 05:23 Fraction of Inspired Oxygen 2 05/16/25 05:21 Medications Administered Medications: Discontinued Medications Generic Name Dose Route Start Last Admin Trade Name Freq PRN Reason Stop Dose Admin Hydromorphone HCl 0.5 mg 05/16/25 04:32 05/16/25 04:52 Hydromorphone 0.5 Mg/0.5 Ml Inj IVP 05/16/25 04:33 0.5 mg ONCE ONE Administration Hydromorphone HCl 0.5 mg 05/16/25 06:26 05/16/25 06:38 Hydromorphone 0.5 Mg/0.5 Ml Inj IVP 0.5 mg Q1H PRN Administration Lactated Ringer's 1,000 mls @ 1,000 mls/hr 05/16/25 05:23 05/16/25 07:16 Lactated Ringers 1000 Ml IV 05/16/25 06:22 Infused .Q1H ONE Infusion Ondansetron HCl 4 mg 05/16/25 04:32 05/16/25 04:52 Ondansetron 2 Mg/Ml Inj IVP 05/16/25 04:33 4 mg ONCE ONE Administration Medical Decision Making Lab Data Labs: Lab Results 05/16/25 05/16/25 05/16/25 Range/Units 04:30 04:32 04:50 WBC 13.65 H (4.50-11.00) K/uL RBC 4.89 (4.00-5.20) m/uL Hgb 13.9 (12.0-16.0) gm/dL Hct 43.5 (33.0-51.0) % MCV 89 (80-100) fL MCH 28 (26-34) pg MCHC 32 (32-36) gm/dL RDW Coeff of Aislinn 13.0 (11.5-15.5) % Plt Count 344 (140-440) K/uL Neut % (Auto) 76.5 H (42.0-72.0) % Lymph % (Auto) 16.8 L (20-44) % Swisher % (Auto) 4.1 (0.0-11.0) % Eos % (Auto) 1.9 (0.0-7.0) % Baso % (Auto) 0.4 (0.0-3.0) % Neut # (Auto) 10.40 H (1.7-7.0) K/uL Lymph # (Auto) 2.30 (0.90-2.90) K/uL Swisher # (Auto) 0.60 (0.00-0.90) K/UL Eos # (Auto) 0.30 (0.00-0.50) K/uL Baso # (Auto) 0.10 (0.00-0.30) K/uL Abs Immat Gran (auto) 0.00 (0.00-0.30) K/uL Imm/Tot Granulo (auto) 0.3 % Sodium 137 (135-149) mmol/L Potassium 4.4 (3.6-5.1) mmol/L Chloride 99 (96-114) mmol/L Carbon Dioxide 23 (20-32) mmol/L Anion Gap 15 (7-15) mEq/L BUN 15 (7-30) mg/dL Creatinine 0.6 (0.5-1.5) mg/dL Estimated Creat Clear 98.69 Estimated GFR 108 ml/min Glucose 188 H (60-115) mg/dL Lactate 2.9 H (0.5-1.9) mmol/L Calcium 9.6 (8.4-10.6) mg/dL Total Bilirubin 0.7 (0.1-1.5) mg/dL AST 24 (12-35) U/L ALT 23 (4-35) U/L Alkaline Phosphatase 108 (40-150) U/L C-Reactive Protein 1.4 H (0.5-1.0) mg/dL Total Protein 7.7 (6.0-8.3) g/dL Albumin 4.5 (3.3-5.0) g/dL Lipase 121 (23-300) U/L Urine Color Yellow (Yellow) Urine Appearance Cloudy A (Clear) Urine pH 6.0 (5.0-8.5) Ur Specific [place] 1.015 (1.000-1.030) Urine Protein 2+ A (Negative) Urine Glucose (UA) 2+ A (Negative) Urine Ketones Negative (Negative) Urine Blood 3+ A (Negative) Urine Nitrite Positive A (Negative) Urine Bilirubin 1+ A (Negative) Urine Urobilinogen 0.2 (0.2-1.0) Ur Leukocyte Esterase Trace A (Negative) Urine RBC 10-25 A (0-2) Urine WBC 10-25 A (0-5) Ur Squamous Epith Cells Few (None-Few) Amorphous Sediment Few A (None) Urine Bacteria Moderate A (None) Urine HCG, Qual Negative (Negative) POC Creatinine 0.6 (0.6-1.3) mg/dl 05/16/25 Range/Units 07:20 WBC (4.50-11.00) K/uL RBC (4.00-5.20) m/uL Hgb (12.0-16.0) gm/dL Hct (33.0-51.0) % MCV (80-100) fL MCH (26-34) pg MCHC (32-36) gm/dL RDW Coeff of Aislinn (11.5-15.5) % Plt Count (140-440) K/uL Neut % (Auto) (42.0-72.0) % Lymph % (Auto) (20-44) % Swisher % (Auto) (0.0-11.0) % Eos % (Auto) (0.0-7.0) % Baso % (Auto) (0.0-3.0) % Neut # (Auto) (1.7-7.0) K/uL Lymph # (Auto) (0.90-2.90) K/uL Swisher # (Auto) (0.00-0.90) K/UL Eos # (Auto) (0.00-0.50) K/uL Baso # (Auto) (0.00-0.30) K/uL Abs Immat Gran (auto) (0.00-0.30) K/uL Imm/Tot Granulo (auto) % Sodium (135-149) mmol/L Potassium (3.6-5.1) mmol/L Chloride (96-114) mmol/L Carbon Dioxide (20-32) mmol/L Anion Gap (7-15) mEq/L BUN (7-30) mg/dL Creatinine (0.5-1.5) mg/dL Estimated Creat Clear Estimated GFR ml/min Glucose (60-115) mg/dL Lactate 2.0 H (0.5-1.9) mmol/L Calcium (8.4-10.6) mg/dL Total Bilirubin (0.1-1.5) mg/dL AST (12-35) U/L ALT (4-35) U/L Alkaline Phosphatase (40-150) U/L C-Reactive Protein (0.5-1.0) mg/dL Total Protein (6.0-8.3) g/dL Albumin (3.3-5.0) g/dL Lipase (23-300) U/L Urine Color (Yellow) Urine Appearance (Clear) Urine pH (5.0-8.5) Ur Specific [place] (1.000-1.030) Urine Protein (Negative) Urine Glucose (UA) (Negative) Urine Ketones (Negative) Urine Blood (Negative) Urine Nitrite (Negative) Urine Bilirubin (Negative) Urine Urobilinogen (0.2-1.0) Ur Leukocyte Esterase (Negative) Urine RBC (0-2) Urine WBC (0-5) Ur Squamous Epith Cells (None-Few) Amorphous Sediment (None) Urine Bacteria (None) Urine HCG, Qual (Negative) POC Creatinine (0.6-1.3) mg/dl Discharge Plan Discharge Clinical Impression: Incarcerated ventral hernia Patient Disposition: Xfer [facility] Discharge Location: [facility] Prescriptions: No Action ondansetron 4 mg tablet,disintegrating PO ketorolac 10 mg tablet PO metformin 1,000 mg tablet 1,000 mg PO BID Jardiance 10 mg tablet 10 mg PO DAILY lisinopril 20 mg tablet 20 mg PO DAILY Ozempic 2 mg/dose (8 mg/3 mL) pen injector subcut nystatin 100,000 unit/gram powder 1 applic topical BID-TID Centrum Silver Women 8 mg iron-400 mcg-50 mcg tablet 1 tab PO QDAY biotin 1 mg capsule 1 mg PO QDAY zinc citrate, zinc oxide 50 mg tablet PO qmxr-uxenl-jce-D3-hyal-xiomy bor 750 mg-100 mg- 25 mcg tablet PO yapem-4b-bme-epa-fish oil-D3 350 mg-400 mg- 1,000 unit capsule PO senna 8.6 mg capsule 8.6 mg PO DAILY PRN (Reason: constipation) Qty: 90 0RF Stand Alone Forms: MyHealth Info Instructions
--- NOTE | 2025-05-19 17:28 | ED.NURSE ---
Called Pt per MD request, Pt to take Keflex 500mg BID x5 days, 0 refills--Pt requests [facility] in [place]. Rx called in as prescribed. Confirmed Pt cleared for oral meds.
== END 2025-05-16 09:03 | disposition short-term general hospital (02) ==
PROVIDERS: Emergency Provider Family Medicine; PCP Family Medicine
DX: K43.6 Other and unspecified ventral hernia with obstruction, without gangrene (principal)
CPT/HCPCS: 36415; 74018; 74177; 80053; 81001; 81003; 81025; 82565; 83605; 83690; 85025; 86140; 87086; 96374; 96375; 96376; 99281; 99284; 99291; J1171; J2405; J7120; Q9967

== ENCOUNTER 2025-05-16 08:45 | Outpatient (CLI) | payer BC, SELFPAY | END 2025-05-16 08:46 | disposition home or self-care (01) | PROVIDERS: PCP Family Medicine; Visit Provider Emergency Medicine Emergency Medical Services | DX: K46.0 Unspecified abdominal hernia with obstruction, without gangrene (principal) | CPT/HCPCS: A0425; A0427 ==